=== PATIENT | female | born 1960 | race American Indian/Alaskan Native ===

== ENCOUNTER 2016-12-17 22:27 | Emergency (ER) | payer BC ==
--- NOTE | 2016-12-20 21:18 | ED Elopement Review ---
ED Pt Elopement review - Call Back decision Pt Call Back Decision: No action required
== END 2016-12-17 22:43 | disposition left against medical advice (07) ==
LOC: ED 22:27
DX: R07.9 Chest pain, unspecified (principal); Z53.21 Procedure and treatment not carried out due to patient leaving prior to being seen by health care provider

== ENCOUNTER 2017-05-13 13:42 | Inpatient (IN) | payer BC ==
[2017-05-13 14:19] LABS: Basophils % (Auto) 0.6 % (0.0-1.8); Eosinophils % (Auto) 2.1 % (0.0-4.3); Hematocrit 42.5 % (30.3-42.9); Hemoglobin 13.9 gm/dl (10.1-14.3); Mean Corpuscular HGB Conc 33 % (30-34); Mean Corpuscular Hemoglobin 28 pg (28-32); Mean Corpuscular Volume 85 fl (79-97); Platelet Count 198 K/mm3 (140-440); Red Blood Count 5.01 M/mm3 (3.65-5.03); Red Cell Distribution Width 14.4 % (13.2-15.2); White Blood Count 4.9 K/mm3 (4.5-11.0)
[2017-05-13 14:30] LABS: Anion Gap 15 mmol/L; BUN/Creatinine Ratio 11.42; Blood Urea Nitrogen 8 mg/dL (7-17); Calcium 10.3 mg/dL (8.4-10.2); Carbon Dioxide 30 mmol/L (22-30); Chloride 100.4 mmol/L (98-107); Glucose 105 mg/dL (65-100); Potassium 4.1 mmol/L (3.6-5.0); Sodium 141 mmol/L (137-145)
[2017-05-14] MEDS ORDERED: NITROSTAT SL ONE ×2 (03:37→03:43)
--- NOTE | 2017-05-14 06:12 | Emergency Department Report ---
ED Chest Pain HPI - General Chief Complaint: Chest Pain Stated Complaint: CHEST PAIN/HIGH BP/DIZZINESS Time Seen by Provider: 05/14/17 05:56 Source: patient Mode of arrival: Ambulatory Limitations: No Limitations - History of Present Illness Initial Comments: 56-year-old female who is been experiencing chest pain was a course last several months. She describes pressure in the center chest radiates to her jaw. She is short of breath with this. She had a recent stress test which she states she said showed "scar tissue in the front of her heart". She states the symptoms are similar over the last several months and there has not been any significant worsening of her symptoms since her stress test. Denies fevers chills nausea vomiting. She is worried slightly better blood pressure is been elevated lately. MD Complaint: chest pain -: Gradual Onset: during rest, during exertion Pain Location: substernal Pain Radiation: jaw/teeth Severity: moderate Severity scale (0 -10): 8 Quality: tightness Consistency: intermittent Improves With: rest Worsens With: nothing Treatments Prior to Arrival: none - Related Data Home Medications Medication Instructions Recorded Confirmed Last Taken Hydrochlorothiazide 25 mg PO DAILY 09/04/13 06/10/16 09/04/13 05:00 Previous Rx's Medication Instructions Recorded Last Taken Type HYDROcodone/APAP 10-325 [[place] 1 each PO Q4H PRN #30 tablet 10/04/13 Unknown Rx 10-325 mg TAB] Levofloxacin [Levaquin TAB] 750 mg PO Q24HR #5 tablet 06/12/16 Unknown Rx Allergies Allergy/AdvReac Type Severity Reaction Status Date / Time No Known Allergies Allergy Verified 09/04/13 07:16 Heart Score - HEART Score History: Highly suspicious EKG: Non-specific Age: 45-65 Risk factors: > 3 risk factors or hx of atherosclerotic disease Troponin: < normal limit HEART Score: 6 ED Review of Systems ROS: Stated complaint: CHEST PAIN/HIGH BP/DIZZINESS Other details as noted in HPI Comment: All other systems reviewed and negative Constitutional: denies: chills, fever Eyes: denies: eye pain, eye discharge, vision change ENT: denies: ear pain, throat pain Respiratory: shortness of breath, SOB with exertion. denies: cough, wheezing Cardiovascular: chest pain, dyspnea on exertion. denies: palpitations Endocrine: no symptoms reported Gastrointestinal: denies: abdominal pain, nausea, diarrhea Genitourinary: denies: urgency, dysuria, discharge Musculoskeletal: denies: back pain, joint swelling, arthralgia Skin: denies: rash, lesions Neurological: denies: headache, weakness, paresthesias Psychiatric: denies: anxiety, depression Hematological/Lymphatic: denies: easy bleeding, easy bruising ED Past Medical Hx - Past Medical History Hx Hypertension: Yes Hx Congestive Heart Failure: Yes Hx Seizures: Yes (1x during child ) Hx Psychiatric Treatment: Yes (ANXIETY) - Surgical History Additional Surgical History: Hysterectomy. COLON POLYPS - Family History Family history: CAD/PR - Social History Smoking Status: Current Every Day Smoker Substance Use Type: None - Medications Home Medications: Home Medications Medication Instructions Recorded Confirmed Last Taken Type Hydrochlorothiazide 25 mg PO DAILY 09/04/13 06/10/16 09/04/13 05:00 History HYDROcodone/APAP 10-325 [[place] 1 each PO Q4H PRN #30 tablet 10/04/13 06/10/16 Unknown Rx 10-325 mg TAB] Levofloxacin [Levaquin TAB] 750 mg PO Q24HR #5 tablet 06/12/16 Unknown Rx ED Physical Exam - General Limitations: No Limitations General appearance: alert, in no apparent distress - Head Head exam: Present: atraumatic, normocephalic - Eye Eye exam: Present: normal appearance. Absent: scleral icterus, conjunctival injection - ENT ENT exam: Present: mucous membranes moist - Neck Neck exam: Present: normal inspection - Respiratory Respiratory exam: Present: normal lung sounds bilaterally. Absent: respiratory distress - Cardiovascular Cardiovascular Exam: Present: regular rate, normal rhythm, normal heart sounds. Absent: systolic murmur, diastolic murmur, rubs, gallop - GI/Abdominal GI/Abdominal exam: Present: soft, normal bowel sounds - Extremities Exam Extremities exam: Present: normal inspection - Back Exam Back exam: Present: normal inspection - Neurological Exam Neurological exam: Present: alert, oriented X3 - Psychiatric Psychiatric exam: Present: normal affect, normal mood - Skin Skin exam: Present: warm, dry, intact, normal color. Absent: rash ED Course Vital Signs 05/13/17 05/13/17 05/14/17 13:51 23:49 01:58 Temperature 98.1 F 97.9 F Pulse Rate 83 78 77 Respiratory 20 18 Rate Blood Pressure 163/107 153/103 Blood Pressure [Left] O2 Sat by Pulse 100 Oximetry 05/14/17 05/14/17 05/14/17 02:00 02:16 02:25 Temperature 97.8 F Pulse Rate 63 71 71 Respiratory 21 17 21 Rate Blood Pressure 192/98 192/98 Blood Pressure 192/98 [Left] O2 Sat by Pulse 98 100 98 Oximetry 05/14/17 05/14/17 05/14/17 02:30 02:45 03:00 Temperature Pulse Rate 67 67 68 Respiratory 13 16 16 Rate Blood Pressure 172/102 174/102 179/106 Blood Pressure [Left] O2 Sat by Pulse 98 94 95 Oximetry 05/14/17 05/14/17 05/14/17 03:15 03:31 03:42 Temperature Pulse Rate 71 74 66 Respiratory 14 16 Rate Blood Pressure 174/102 174/102 166/98 Blood Pressure [Left] O2 Sat by Pulse 100 97 Oximetry 05/14/17 05/14/17 05/14/17 03:45 04:00 04:15 Temperature Pulse Rate 78 68 74 Respiratory 16 14 19 Rate Blood Pressure 166/98 148/91 148/91 Blood Pressure [Left] O2 Sat by Pulse 97 96 97 Oximetry BERNA score - Berna Score Age > 65: (0) No Aspirin use within the Past 7 Days: (0) No 3 or more CAD Risk Factors: (0) No 2 or more Angina events in past 24 hrs: (0) No Known CAD with more than 50% Stenosis: (0) No Elevated Cardiac Markers: (0) No ST Deviation Greater than 0.5mm: (0) No BERNA Score: 0 ED Medical Decision Making - Lab Data Result diagrams: 05/13/17 13:57 05/13/17 13:57 Laboratory Results - last 24 hr 05/13/17 05/13/17 05/13/17 13:57 13:57 17:07 WBC 4.9 RBC 5.01 Hgb 13.9 Hct 42.5 MCV 85 MCH 28 MCHC 33 RDW 14.4 Plt Count 198 Lymph % (Auto) 44.4 H Dukes % (Auto) 10.7 H Eos % (Auto) 2.1 Baso % (Auto) 0.6 Lymph # 2.1 Dukes # 0.5 Eos # 0.1 Baso # 0.0 Seg Neutrophils % 42.2 Seg Neutrophils # 2.0 Sodium 141 Potassium 4.1 Chloride 100.4 Carbon Dioxide 30 Anion Gap 15 BUN 8 Creatinine 0.7 Estimated GFR > 60 BUN/Creatinine Ratio 11.42 Glucose 105 H Calcium 10.3 H Troponin T < 0.010 < 0.010 05/13/17 20:45 WBC RBC Hgb Hct MCV MCH MCHC RDW Plt Count Lymph % (Auto) Dukes % (Auto) Eos % (Auto) Baso % (Auto) Lymph # Dukes # Eos # Baso # Seg Neutrophils % Seg Neutrophils # Sodium Potassium Chloride Carbon Dioxide Anion Gap BUN Creatinine Estimated GFR BUN/Creatinine Ratio Glucose Calcium Troponin T < 0.010 - EKG Data -: EKG Interpreted by Me - EKG Data 05/14/17 06:10 Sinus rhythm rate of 79 and normal axis normal intervals questionable LVH no ST or T-wave changes. - Medical Decision Making 56-year-old female here with complaint of chest pain. Her story is certainly concerning for possible ACS. She is being followed by cardiology and has been told she's had a recent stress test with some questionable findings. Given her persistence of symptoms over the course of last 2 months and some questionable worsening I will discuss with cardiology. Currently her EKG does not show obvious ischemia. She had 2 negative troponin tests. Given the patient's accelerating symptoms a plan to admit. My recommendation would be a cardiac catheterization to rule out true disease. Portions of this chart were dictated with dictation software. There may be dictation errors contained within this note. Critical care attestation.: If time is entered above; I have spent that time in minutes in the direct care of this critically ill patient, excluding procedure time. ED Disposition Clinical Impression: Chest pain Disposition: -09 OP ADMIT IP TO THIS HOSP Is pt being admited?: Yes Condition: Stable Instructions: Chest Pain (ED) Referrals: PRIMARY CARE, [Primary Care Provider] - 3-5 Days
--- NOTE | 2017-05-14 07:34 | XRay Report ---
CHEST 2 VIEWS INDICATION: Chest pain. COMPARISON: 06/11/2016. FINDINGS: PA and lateral chest radiographs demonstrate normal cardiomediastinal silhouette. Clear lungs. Mild mid thoracic spine degenerative changes. EKG leads. CONCLUSION: No acute disease in the chest. Thank you for the opportunity to participate in this patient's care.
--- NOTE | 2017-05-14 07:44 | Admit Criteria Form ---
<YVAN BRITTON - Last Filed: 05/14/17 11:50> Admission Criteria Documentation: CARDIOLOGY GRG Clinical Indications for Admission to Inpatient Care ([place]/check or initial the applicable condition/criteria) Hospital admission is needed for appropriate care of the patient because of ANY ONE of the following: [ ] I. Hemodynamic instability as indicated by ALL of the following (1)(2)(3) (4)(5)(6)(7)(8)(9)(10) [ ]a) Vital sign abnormality not readily corrected by appropriate treatment with 12-24 hours for ANY ONE: [ ]i) Hypotension that persists despite appropriate treatment (eg, volume repletion) [ ]ii) Tachycardiathat persists despite appropriate tx ( e.g., analgesia, fluids, sedation as indicated [ ]iii) Orthostatic vital sign changes that persists despite appropriate treatment (eg, volume repletion) [ ]b) Vital sign abnormailty that is severe indicated by ANY ONE of the following: [ ]i) Inadequate perfusion indicated by ANY ONE of the following: [ ] 1) Lactic acidosis (> 2 mmol/L) [ ] 2) New abnormal capillary refill (> 3 seconds) [ ] 3) Reduced urine output [ ] 4) New altered mental status [ ] 5) Myocardial Ischemia [ ] 6) Other metabolic acidosis (arterial pH <7.35 ) not otherwise explained. [ ]ii) Mean arterial pressure[A] less than 60 mm Hg [ ]iii) Mean arterial pressure[A] less than 70 mm Hg after 30 minutes of appropriate treatment (eg, fluid resuscitation) [ ]iv) Sustained heart rate greater than 120 beats per minute in adult or child 6 years or older[B] [ ]v) IV inotropic or vasopressor medication required to maintain adequate blood pressure or perfusion [ ] II. Severe heart failure as indicated by ANY ONE of the following(17)(18) [ ]a) Respiratory distress [ ]b) Hypotension [ ]c) Debilitating anasarca refractory to therapy (eg, tissue breakdown with infection)[C](19) [ ]d) Cardiac arrhythmias of immediate concern [ ]e) Myocardial ischemia [ ] III. Cardiac arrhythmias or findings of immediate concern indicated by ANY ONE of the following (21)(22): [ ] a) Heart rhythms that are inherently dangerous or unstable indicated by ANY ONE of the following (23)(24)(25): [ ] i) Resuscitated ventricular fibrillation or cardiac arrest [ ] ii) Ventricular escape rhythm [ ] iii) Sustained ventricular tachycardia (30 seconds or more of ventricular rhythm at greater than 100 beats per minute) [ ] iv) Nonsustained ventricular tachycardia and ANY ONE of the following: [ ] 1) Suspected cardiac ischemia as cause or consequence of ventricular tachycardia [ ] 2) Acute myocarditis [ ] b) Unstable cardiac conduction defects indicated by ANY ONE of the following(25)(26)(27) [ ] i) Type II second-degree atrioventricular block [ ]ii) Third-degree atrioventricular block [ ]iii) New-onset left bundle branch block with suspected myocardial ischemia [ ]c) Any heart rhythm and ANY ONE of the following (23)(24)(28)(29) (30) [ ] i) Continuous long-term ECG monitoring needed (e.g., initiation of drug requiring monitoring for more than 24 hours) [ ] ii) Patient has automatic implanted cardioverter defibrillator that is repeatedly firing, malfunctioning, or in need of immediate adjustment of settings beyond the scope of ambulatory or observation care [ ]d) Heart rhythms of concern due to ANY ONE of the following: [ ] i) Hypotension [ ] ii) Respiratory distress [ ] iii) Association with other significant symptoms (e.g., bradycardia with syncope or ongoing dizziness, supraventricular tachycardia with chest pain (28)(29)(31) [ ] IV. Monitoring for cardiac contusion beyond the scope of observation care needed [A](32)(33)(34) [ ] V. Surgical or device complication (e.g., valve replacement complication , ICD disfunction or pacemaker dysfunction) (49)(50)(51)(52)(53)(54) [ ] . Inpatient palliative care needed. [F](51)(52) Also use Inpatient Palliative Care Criteria [ ] VII. Nonbacterial thrombotic (marantic) endocarditis(43)(44)(55)(56)(57) [X] VIII. Cardiology condition, symptom, or finding for which emergency and observation care has failed or are not considered appropriate. [ ] IX. Acute valvular disease requiring inpatient as indicated by ANY ONE of the following (40)(41) [ ]a) Acute valvular regurgitation (42) [ ]b) Noninfectious valvulitis (43)(44) [ ]c) Obstructive valve thrombosis (45)(46) [ ]d) Paravalvular leak(47)(48) [ ]e) Other significant valvular disorder remaining after emergency or observation level of care (as appropriate) [ ]X. Pericardial disease requiring inpatient treatment as indicated by ANY ONE of the following (35)(36)(37)(38) [ ]a) Suspected tamponade [ ]b) Hemopericardium [ ]c) Other significant pericardial disorder remaining after emergency or observation level of care (as appropriate)(39) [ ] XI. Cardiac ischemia beyond scope of emergency and observation care. [ ] XII. Cyanotic heart disease requiring inpatient care as indicated by 1 or more of the following(58)(59)(60): [ ]a) Acute onset of hypoxemia [ ]b) Exacerbation [ ] XIII. Hypertension requiring inpatient treatment as indicated by ANYONE of the following(11)(12)(13)(14): [ ]a) Severe hypertension (SBP greater than 180 mm Hg or DBP greater than 110 mm Hg, or greater than the 95th percentile for age, gender, and height in pediatric patients) that cannot be controlled (eg, to SBP less than 160 mm Hg and DBP less than 100 mm Hg) by emergency department or observation care treatment(15) [ ]b) Acute end organ damage secondary to hypertension (SBP greater than 140 mm Hg or DBP greater than 90 mm Hg) as indicated by ANYONE of the following: [ ] i) Hypertensive encephalopathy (eg, Altered mental status)(16) [ ] ii) Cerebral infarction [ ] iii) Intracranial hemorrhage [ ] iv) Myocardial ischemia or infarction [ ] v) Heart failure (eg, pulmonary edema) [ ] vi) Aortic dissection [ ] vii) Increased creatinine (new) with reduction of more than 50% in estimated glomerular filtration rate from baseline [ ] viii) Papilledema [ ] ix) Retinal hemorrhage [ ] x) Microangiopathic hemolytic anemia [ ] xi) Seizure [ ] xii) Other significant finding secondary to hypertension [ ] XIV. Complications of transplanted heart indicated by ANY ONE of the following(61): [ ]a) Acute graft rejection requiring inpatient management (eg, intravenous imunosuppression)(62)(63) [ ]b) Acute graft heart failure indicated by ANY ONE of the following(64): [ ] i) Hemodynamic instability [ ] ii) Cardiac arrhythmias of immediate concern [ ] iii) Pulmonary edema that is very severe (eg, mechanical ventilation needed, imminent or likely, need for 100% oxygen to keep oxygen saturation above 90%) [ ] iv) Pulmonary edema that is persistent as indicated by ALL of the following: [ ] 1) New need for oxygen therapy to keep oxygen saturation above 90 % (or increased FiO2 need from baseline) [ ] 2) Has not improved sufficiently with emergency department or observation care IV diuretics or other heart failure treatments[E]. [ ] iv) Altered mental status that is severe or persistent [ ] iv) Increased creatinine (new on laboratory test) with reduction of more than 50% in estimated glomerular filtration rate from baseline [ ] iv) Progressively (ongoing) rising creatinine (known from past laboratory test) with reduction of more than 25% in estimated glomerular filtration rate from baseline [ ] iv) Acute renal failure [ ] iv) Acute peripheral ischemia (eg, examination shows pulseless, cool, mottled, or cyanotic extremity) [ ] iv) Pulmonary artery catheter monitoring needed [ ] iv) Other sign or symptom of heart failure requiring inpatient treatment (ie, too severe or not responsive to outpatient and observation care treatment) [ ]c) Infection requiring inpatient management (eg, Hemodynamic instability, need for intravenous antimicrobial treatment)(66)(67)(68)(69)(70) [ ]d) Cardiac allograft vasculopathy requiring inpatient management (eg evidence of cardiacischemia)(71) [ ]e) Other complication of transplanted heart (eg, stroke, severe pulmonary hypertension, severe valvular dysfunction) requiring inpatient management(72) The original [facility] [employer] content created by [employer] has been revised. The portions of the content which have been revised are identified through the use of italic text or in bold, and [facility] has neither reviewed nor approved the modified material. All other unmodified content is copyright [facility] [employer]. Please see references footnoted in the original [facility] [employer] edition 2017 Admission Criteria Met: Yes <JESSA WHITMORE - Last Filed: 05/17/17 15:44> Admission Criteria Documentation: I am administratively signing this admission criteria form. This form has no clinical bearing on the patients admission status.
[2017-05-14] MEDS ORDERED: TYLENOL PO PRN (08:26)
[2017-05-14] MEDS ORDERED: DULCOLAX PR PRN (08:26)
[2017-05-14] MEDS ORDERED: NITROSTAT SL PRN (08:33)
--- NOTE | 2017-05-14 09:38 | History and Physical Report ---
<MICHELL ISAACS - Last Filed: 05/14/17 14:06> History of Present Illness Date of examination: 05/14/17 Date of admission: 05/14/17 08:26 Chief complaint: Chest Pain History of present illness: Patient is a 56 years old -[place] female with no past medical history who presents to the emergency department complaining of chest pain. She states that the pain began yesterday and consisted of a sharp pain. The pain was located over the Midsternal somewhat to the left shoulder area . She noticed the pain this morning as he was getting out of bed and while the patient was walking to the bath room. She describes the quality as something is sitting on her chest /pressure without radiation to the shoulder, arm, back, or jaw. It has been a constant pain since it started last night. no alleviating or aggravating factors. He continued to have several episodes of the pain throughout this morning, she got worried so she decided to come to emergency room. Patient took Tylenol and Motrin with out improvement. At the ED the patient was given nitroglycerin and ASA somewhat believes relief the pain. She reported shortness of breath and dyspnea on exertion. She denies nausea, vomiting heart palpitations lightheadedness, dizziness, and diaphoresis during these episodes of pain. The patient currently denies having chest pain. Past History Past Medical History: hypertension, other (depression) Past Surgical History: No surgical history Social history: lives with family, smoking Family history: diabetes, hypertension Medications and Allergies Allergies Allergy/AdvReac Type Severity Reaction Status Date / Time No Known Allergies Allergy Verified 09/04/13 07:16 Home Medications Medication Instructions Recorded Confirmed Last Taken Type Hydrochlorothiazide 25 mg PO DAILY 09/04/13 05/14/17 09/04/13 05:00 History Lisinopril [Zestril] 20 mg PO QDAY 05/14/17 05/14/17 Unknown History Multivitamin Tab [Multiple Vitamin 1 each PO QDAY 05/14/17 05/14/17 Unknown History TAB (Theragran)] PARoxetine [Paxil] 20 mg PO DAILY 05/14/17 05/14/17 Unknown History Active Meds: Active Medications Acetaminophen (Tylenol) 650 mg PO Q4H PRN PRN Reason: Pain MILD(1-3)/Fever >100.5/CEDENO Aspirin (Aspirin) 325 mg PO DAILY [facility] Bisacodyl (Dulcolax) 10 mg ME QDAY PRN PRN Reason: Constipation unrelieved by MOM Enoxaparin Sodium (Lovenox) 40 mg SUB-Q QDAY [facility] Hydrochlorothiazide (Hctz) 25 mg PO DAILY [facility] Morphine Sulfate (Morphine) 2 mg IV Q4H PRN PRN Reason: Pain, Moderate (4-6) Nitroglycerin (Nitrostat) 0.4 mg SL .Q5MIN PRN PRN Reason: Chest Pain Review of Systems Constitutional: no weight loss, no weight gain, no fever, no chills Ears, nose, mouth and throat: no ear pain, no ear discharge, no tinnitis, no decreased hearing, no nose pain Breasts: normal, no swelling, no mass Cardiovascular: chest pain, palpitations, shortness of breath, dyspnea on exertion, no rapid/irregular heart beat, no edema, no syncope, no lightheadedness Respiratory: no cough Gastrointestinal: nausea, no vomiting, no diarrhea, no constipation, no change in bowel habits Genitourinary Female: no pelvic pain, no flank pain, no menorrhagia, no dysuria , no urinary frequency Menstruation: no currently menstrual, no premenarcheal, no post hysterectomy, no ammenorrhea Rectal: no pain, no incontinence Musculoskeletal: no neck stiffness, no neck pain, no arm numbness/tingling Integumentary: no rash, no pruritis, no redness, no sores Neurological: no head injury, no transient paralysis, no paralysis, no weakness , no parathesias Psychiatric: depression, no anxiety, no change in sleep habits Endocrine: no cold intolerance, no heat intolerance, no polyphagia, no excessive thirst, no polydipsia Hematologic/Lymphatic: no easy bruising, no easy bleeding Allergic/Immunologic: no urticaria, no allergic rhinitis Exam - Constitutional Vitals: Temp Pulse Resp BP Pulse Ox 97.8 F 69 18 151/106 97 05/14/17 02:25 05/14/17 07:53 05/14/17 07:53 05/14/17 07:53 05/14/17 07:53 General appearance: Present: no acute distress - EENT Eyes: Present: PERRL ENT: hearing intact - Neck Neck: Present: supple - Respiratory Respiratory effort: normal Respiratory: bilateral: CTA - Cardiovascular Heart rate: 62 Rhythm: regular Heart Sounds: Present: S1 & S2 - Extremities Extremities: no ischemia Peripheral Pulses: within normal limits - Abdominal General gastrointestinal: Present: soft, non-tender Female genitourinary: Present: deferred - Rectal Rectal Exam: deferred - Integumentary Integumentary: Present: clear, warm, dry - Musculoskeletal Musculoskeletal: strength equal bilaterally - Psychiatric Psychiatric: appropriate mood/affect - Neurologic Neurologic: CNII-XII intact - Allied Health Allied health notes reviewed: nursing Results - Labs CBC & Chem 7: 05/13/17 13:57 05/13/17 13:57 Labs: Laboratory Last Values WBC 4.9 K/mm3 (4.5-11.0) 05/13/17 13:57 RBC 5.01 M/mm3 (3.65-5.03) 05/13/17 13:57 Hgb 13.9 gm/dl (10.1-14.3) 05/13/17 13:57 Hct 42.5 % (30.3-42.9) 05/13/17 13:57 MCV 85 fl (79-97) 05/13/17 13:57 MCH 28 pg (28-32) 05/13/17 13:57 MCHC 33 % (30-34) 05/13/17 13:57 RDW 14.4 % (13.2-15.2) 05/13/17 13:57 Plt Count 198 K/mm3 (140-440) 05/13/17 13:57 Lymph % (Auto) 44.4 % (13.4-35.0) H 05/13/17 13:57 Gilliam % (Auto) 10.7 % (0.0-7.3) H 05/13/17 13:57 Eos % (Auto) 2.1 % (0.0-4.3) 05/13/17 13:57 Baso % (Auto) 0.6 % (0.0-1.8) 05/13/17 13:57 Lymph # 2.1 K/mm3 (1.2-5.4) 05/13/17 13:57 [place]illiam # 0.5 K/mm3 (0.0-0.8) 05/13/17 13:57 Eos # 0.1 K/mm3 (0.0-0.4) 05/13/17 13:57 Baso # 0.0 K/mm3 (0.0-0.1) 05/13/17 13:57 Seg Neutrophils % 42.2 % (40.0-70.0) 05/13/17 13:57 Seg Neutrophils # 2.0 K/mm3 (1.8-7.7) 05/13/17 13:57 Sodium 141 mmol/L (137-145) 05/13/17 13:57 Potassium 4.1 mmol/L (3.6-5.0) 05/13/17 13:57 Chloride 100.4 mmol/L (98-107) 05/13/17 13:57 Carbon Dioxide 30 mmol/L (22-30) 05/13/17 13:57 Anion Gap 15 mmol/L 05/13/17 13:57 BUN 8 mg/dL (7-17) 05/13/17 13:57 Creatinine 0.7 mg/dL (0.7-1.2) 05/13/17 13:57 Estimated GFR > 60 ml/min 05/13/17 13:57 BUN/Creatinine Ratio 11.42 % 05/13/17 13:57 Glucose 105 mg/dL (65-100) H 05/13/17 13:57 Calcium 10.3 mg/dL (8.4-10.2) H 05/13/17 13:57 Troponin T < 0.010 ng/mL (0.00-0.029) 05/13/17 20:45 - Imaging and Cardiology Chest x-ray: image reviewed (no acute disease chest) Assessment and Plan Assessment and plan: Chest Pain We will admit to telemetry floor. EKG normal sinus rate [address] elevation or T-wave inversion. Negative cardiac enzyme X3 Start on aspirin Nitroglycerin when necessary Morphine ordered for pain Patient has Long-standing atypical chest pain, with extensive prior cardiac workup including a negative cardiac catheterization 3-1/2 years ago, and a negative outpatient thallium stress test 4 months ago. ECGs and cardiac enzymes are negative. No additional cardiac workup is indicated for atypical chest pain, per cardiology. Cardiology Consulted Hypertension Started on home antihypertensive pills. IV hydralazine for SBP >160 Closely monitor blood pressure Depression Started on home antidepression medication. Tobacco use Smoking cessation counseling done patient strongly advised to quit. <JORGE URENA - Last Filed: 05/14/17 18:33> History of Present Illness Date of admission: 05/14/17 08:26 Medications and Allergies Active Meds: Active Medications Acetaminophen (Tylenol) 650 mg PO Q4H PRN PRN Reason: Pain MILD(1-3)/Fever >100.5/CEDENO Aspirin (Aspirin) 325 mg PO DAILY [facility] Last Admin: 05/14/17 10:25 Dose: 325 mg Bisacodyl (Dulcolax) 10 mg ME QDAY PRN PRN Reason: Constipation unrelieved by MOM Enoxaparin Sodium (Lovenox) 40 mg SUB-Q QDAY [facility] Last Admin: 05/14/17 10:25 Dose: 40 mg Hydrochlorothiazide (Hctz) 25 mg PO DAILY [facility] Last Admin: 05/14/17 10:25 Dose: 25 mg Lisinopril (Zestril) 20 mg PO QDAY [facility] Morphine Sulfate (Morphine) 2 mg IV Q4H PRN PRN Reason: Pain, Moderate (4-6) Last Admin: 05/14/17 15:51 Dose: 2 mg Multivitamins (Theragran Tab) 1 each PO QDAY [facility] Nitroglycerin (Nitrostat) 0.4 mg SL .Q5MIN PRN PRN Reason: Chest Pain Paroxetine HCl (Paxil) 20 mg PO DAILY [facility] Valsartan (Diovan) 80 mg PO BID [facility] Last Admin: 05/14/17 15:51 Dose: 80 mg Exam - Constitutional Vitals: Temp Pulse Resp BP Pulse Ox 98.5 F 67 20 99/78 99 05/14/17 17:00 05/14/17 17:00 05/14/17 17:00 05/14/17 17:00 05/14/17 17:00 Results - Labs CBC & Chem 7: 05/13/17 13:57 05/13/17 13:57 Labs: Laboratory Last Values WBC 4.9 K/mm3 (4.5-11.0) 05/13/17 13:57 RBC 5.01 M/mm3 (3.65-5.03) 05/13/17 13:57 Hgb 13.9 gm/dl (10.1-14.3) 05/13/17 13:57 Hct 42.5 % (30.3-42.9) 05/13/17 13:57 MCV 85 fl (79-97) 05/13/17 13:57 MCH 28 pg (28-32) 05/13/17 13:57 MCHC 33 % (30-34) 05/13/17 13:57 RDW 14.4 % (13.2-15.2) 05/13/17 13:57 Plt Count 198 K/mm3 (140-440) 05/13/17 13:57 Lymph % (Auto) 44.4 % (13.4-35.0) H 05/13/17 13:57 Gilliam % (Auto) 10.7 % (0.0-7.3) H 05/13/17 13:57 Eos % (Auto) 2.1 % (0.0-4.3) 05/13/17 13:57 Baso % (Auto) 0.6 % (0.0-1.8) 05/13/17 13:57 Lymph # 2.1 K/mm3 (1.2-5.4) 05/13/17 13:57 Gilliam # 0.5 K/mm3 (0.0-0.8) 05/13/17 13:57 Eos # 0.1 K/mm3 (0.0-0.4) 05/13/17 13:57 Baso # 0.0 K/mm3 (0.0-0.1) 05/13/17 13:57 Seg Neutrophils % 42.2 % (40.0-70.0) 05/13/17 13:57 Seg Neutrophils # 2.0 K/mm3 (1.8-7.7) 05/13/17 13:57 Sodium 141 mmol/L (137-145) 05/13/17 13:57 Potassium 4.1 mmol/L (3.6-5.0) 05/13/17 13:57 Chloride 100.4 mmol/L (98-107) 05/13/17 13:57 Carbon Dioxide 30 mmol/L (22-30) 05/13/17 13:57 Anion Gap 15 mmol/L 05/13/17 13:57 BUN 8 mg/dL (7-17) 05/13/17 13:57 Creatinine 0.7 mg/dL (0.7-1.2) 05/13/17 13:57 Estimated GFR > 60 ml/min 05/13/17 13:57 BUN/Creatinine Ratio 11.42 % 05/13/17 13:57 Glucose 105 mg/dL (65-100) H 05/13/17 13:57 Calcium 10.3 mg/dL (8.4-10.2) H 05/13/17 13:57 Troponin T < 0.010 ng/mL (0.00-0.029) 05/13/17 20:45 Assessment and Plan Assessment and plan: I saw and evaluated the patient. I agree with the findings and the plan of care as documented in the Nurse Practitioner's~note, with the following corrections and additions. Patient presents with chest pain. Will admit to rule out acute coronary syndrome. Cardiology to evaluate. Advance Directives: Yes (Full code) VTE prophylaxis?: Chemical Plan of care discussed with patient/family: Yes
[2017-05-14] MEDS: HCTZ PO SCH (10:25)
[2017-05-14] MEDS: LOVENOX SUB-Q SCH (10:25)
[2017-05-14] MEDS: ASPIRIN PO SCH (10:25)
[2017-05-14] MEDS ORDERED: MORPHINE ONE (10:55)
[2017-05-14] MEDS: MORPHINE IV PRN ×3 (11:02→22:07)
--- NOTE | 2017-05-14 12:35 | Consultation ---
History of Present Illness Consult date: 05/14/17 Consult reason: chest pain History of present illness: Patient is a 56-year-old woman with a long history of atypical chest pain. Chest pain workup has culminated in a cardiac catheterization 3-1/2 years ago in this hospital, August 2013. Cardiac catheterization was negative, with no significant coronary lesions, normal left ventricle systolic function ejection fraction 55-60%. In addition, she reports that 4 months ago, she underwent outpatient Persantin thallium stress test that was also negative. In addition, she has chronic uncontrolled hypertension. She presented to this hospital at this time with complaints of lightheadedness and dizziness which she suspected was due to blood pressure elevation. She states that she took her blood pressure and it was 170 systolic. This led to additional anxiety, when she also reported some nonspecific, poorly characterized chest pain. She presented to the emergency room where an EKG revealed normal sinus rhythm, poor R-wave progression, but otherwise normal ECG with no ST or T-wave changes of ischemia. She was admitted and cardiac consultation requested. It is notable that since admission, her blood pressure has remained persistently elevated 160s to 170s systolic. Separately, the patient also reports that she was recently diagnosed with suspected colon cancer and she is planned for outpatient colon surgery in the next several weeks. Past History Past Medical History: CAD, hypertension Medications and Allergies Allergies Allergy/AdvReac Type Severity Reaction Status Date / Time No Known Allergies Allergy Verified 09/04/13 07:16 Home Medications Medication Instructions Recorded Confirmed Last Taken Type Hydrochlorothiazide 25 mg PO DAILY 09/04/13 05/14/17 09/04/13 05:00 History Lisinopril [Zestril] 20 mg PO QDAY 05/14/17 05/14/17 Unknown History Multivitamin Tab [Multiple Vitamin 1 each PO QDAY 05/14/17 05/14/17 Unknown History TAB (Theragran)] PARoxetine [Paxil] 20 mg PO DAILY 05/14/17 05/14/17 Unknown History Active Meds: Active Medications Acetaminophen (Tylenol) 650 mg PO Q4H PRN PRN Reason: Pain MILD(1-3)/Fever >100.5/CEDEON Aspirin (Aspirin) 325 mg PO DAILY [facility] Last Admin: 05/14/17 10:25 Dose: 325 mg Bisacodyl (Dulcolax) 10 mg OR QDAY PRN PRN Reason: Constipation unrelieved by MOM Enoxaparin Sodium (Lovenox) 40 mg SUB-Q QDAY [facility] Last Admin: 05/14/17 10:25 Dose: 40 mg Hydrochlorothiazide (Hctz) 25 mg PO DAILY [facility] Last Admin: 05/14/17 10:25 Dose: 25 mg Morphine Sulfate (Morphine) 2 mg IV Q4H PRN PRN Reason: Pain, Moderate (4-6) Last Admin: 05/14/17 11:02 Dose: 2 mg Nitroglycerin (Nitrostat) 0.4 mg SL .Q5MIN PRN PRN Reason: Chest Pain Review of Systems Cardiovascular: chest pain, other (dizziness), no orthopnea, no palpitations, no rapid/irregular heart beat, no edema, no syncope, no lightheadedness, no shortness of breath Physical Examination Vital Signs Temp Pulse Resp BP Pulse Ox 98.1 F 83 20 163/107 100 05/13/17 13:51 05/13/17 13:51 05/13/17 13:51 05/13/17 13:51 05/13/17 13:51 General appearance: no acute distress HEENT: Positive: PERRL Neck: Positive: neck supple Cardiac: Positive: Reg Rate and Rhythm Lungs: Positive: clear to auscultation Neuro: Positive: Grossly Intact Abdomen: Positive: Soft Female genitourinary: deferred Skin: Positive: Clear Extremities: Absent: edema Results 05/13/17 13:57 05/13/17 13:57 EKG interpretations - Telemetry EKG Rhythm: Sinus Rhythm Assessment and Plan - Patient Problems (1) Uncontrolled hypertension Current Visit: Yes Status: Acute Plan to address problem: Patient's primary medical problem at this time appears to be the uncontrolled hypertension. We will switch her blood pressure medicine to Diovan 160 mg daily. (2) Atypical chest pain Current Visit: Yes Status: Acute Plan to address problem: Long-standing atypical chest pain, with extensive prior cardiac workup including a negative cardiac catheterization 3-1/2 years ago, and a negative outpatient thallium stress test 4 months ago. ECGs and cardiac enzymes are negative. No additional cardiac workup is indicated for atypical chest pain.
[2017-05-14] MEDS: DIOVAN PO SCH ×2 (15:51→22:07)
[2017-05-15] MEDS: MORPHINE IV PRN (03:33)
[2017-05-15 05:46] LABS: Basophils % (Auto) 0.7 % (0.0-1.8); Hematocrit 40.4 % (30.3-42.9); Hemoglobin 13.1 gm/dl (10.1-14.3); Mean Corpuscular HGB Conc 33 % (30-34); Mean Corpuscular Hemoglobin 28 pg (28-32); Mean Corpuscular Volume 86 fl (79-97); Platelet Count 167 K/mm3 (140-440); Red Cell Distribution Width 14.4 % (13.2-15.2); White Blood Count 3.8 K/mm3 (4.5-11.0)
[2017-05-15 06:02] LABS: Alanine Aminotransferase 22 units/L (7-56); Albumin 3.4 g/dL (3.9-5); Albumin/Globulin Ratio 0.9 %; Alkaline Phosphatase 59 units/L (35-129); Anion Gap 15 mmol/L; BUN/Creatinine Ratio 21.66; Blood Urea Nitrogen 13 mg/dL (7-17); Calcium 9.4 mg/dL (8.4-10.2); Carbon Dioxide 27 mmol/L (22-30); Chloride 100.6 mmol/L (98-107); Glucose 95 mg/dL (65-100); Potassium 3.5 mmol/L (3.6-5.0); Sodium 139 mmol/L (137-145); Total Protein 7.3 g/dL (6.3-8.2)
[2017-05-15] MEDS ORDERED: THERAGRAN Tab PO SCH (10:00)
[2017-05-15] MEDS ORDERED: ZESTRIL PO SCH (10:00)
[2017-05-15] MEDS ORDERED: PAXIL PO SCH (10:00)
[2017-05-15] MEDS: ASPIRIN PO SCH (10:04)
[2017-05-15] MEDS: HCTZ PO SCH (10:04)
[2017-05-15] MEDS: DIOVAN PO SCH (10:05)
[2017-05-15] MEDS: LOVENOX SUB-Q SCH (10:14)
--- NOTE | 2017-05-15 10:49 | Discharge Summary ---
Providers - Providers Date of Admission: 05/14/17 08:26 Date of discharge: 05/15/17 Attending physician: JORGE URENA 05/14/17 08:31 Consult to Physician [CONS] Routine Consulting Provider: RAEGAN YANEZ Reason For Exam: Chest pain Place consult to:: yes Notified:: yes Primary care physician: DEMETRIUS PARRY MD Hospitalization Condition: Fair Hospital course: Patient is 56 yo presented with chest pain. Initial Troponin was normal. Her BP was elevated at 163/107. She was given medications to control blood pressure She was given Aspirin and admitted to rule out acute coronary syndrome and manage hypertensive urgency. She was evaluated by Cardiology who then noted that patient had negative cardiac cath few yrs ago and negative stress test 4 months ago.No further cardiac testing was recommended. She was started on Diovan. Her blood pressure normalised by next day and she was discharged home on 05/15/17 Disposition: DC-01 TO HOME OR SELFCARE - Discharge Diagnoses (1) Chest pain Status: Acute Qualifiers: Chest pain type: C Ischemic chest pain type: I Comment: due to GERD (2) Uncontrolled hypertension Status: Acute (3) Obese Status: Acute Qualifiers: Obesity type: O Obesity classification: O Serious obesity comorbidity presence: S Body mass index: BMI 34.0-34.9 (4) Hypercalcemia Status: Acute Core Measure Documentation - Palliative Care Palliative Care/ Comfort Measures: Not Applicable - Core Measures Any of the following diagnoses?: none Exam - Constitutional Vitals: Temp Pulse Resp BP Pulse Ox 98.0 F 67 18 117/73 96 05/15/17 08:44 05/15/17 10:05 05/15/17 08:44 05/15/17 10:05 05/15/17 08:44 General appearance: Present: no acute distress - EENT ENT: hearing intact - Respiratory Respiratory: bilateral: CTA - Cardiovascular Rhythm: regular Heart Sounds: Present: S1 & S2 (S1 and S2 reg, no murmurs, rubs or gallop) - Extremities Extremities: No edema - Abdominal General gastrointestinal: Present: soft, non-distended, normal bowel sounds - Neurologic Neurologic: moves all extremities, other (AAO x 3) Plan Activity: advance as tolerated Diet: low fat, low cholesterol, low salt Additional Instructions: 1.Follow up with PCP in 1 week. 2.Follow up with [facility] in 1 week Follow up with: PRIMARY CARE, [Primary Care Provider] - 3-5 Days Forms: Work/School Release Form Prescriptions: Valsartan [Diovan] 160 mg PO QDAY #30 tablet
[2017-05-15 13:10] VITALS: BP 129/83
--- NOTE | 2017-05-15 13:54 | Progress Note ---
Assessment and Plan Uncontrolled hypertension now better with the addition of diovan Atypical chest pain negative cardiac catheterization 3-1/2 years ago negative outpatient thallium stress test 4 months ago. ECGs and cardiac enzymes are negative. No additional cardiac workup is indicated for atypical chest pain. Subjective Date of service: 05/15/17 Interval history: Patient appears comfortable. She denies chest pain and shortness of breath. For planned discharge home today. Objective Vital Signs Temp Pulse Resp BP Pulse Ox 05/15/17 13:03 97.4 F L 63 18 129/83 97 05/15/17 10:05 67 117/73 05/15/17 10:04 67 117/73 05/15/17 08:44 98.0 F 67 18 117/73 96 05/15/17 03:55 97.6 F 57 L 20 118/77 94 05/15/17 00:11 98.6 F 64 20 114/80 95 05/14/17 22:00 69 20 05/14/17 19:06 97.9 F 70 19 122/93 98 05/14/17 17:00 98.5 F 67 20 99/78 99 05/14/17 16:00 98.7 F 67 20 99/78 98 05/14/17 15:51 134/86 05/14/17 14:16 62 - Physical Examination General: No Apparent Distress HEENT: Positive: PERRL Neck: Positive: trachea midline Cardiac: Positive: Reg Rate and Rhythm Neuro: Positive: Grossly Intact - Labs and Meds Cardiac Enzymes 05/15/17 Range/Units 05:13 AST 23 (5-40) units/L CBC 05/15/17 Range/Units 05:13 WBC 3.8 L (4.5-11.0) K/mm3 RBC 4.70 (3.65-5.03) M/mm3 Hgb 13.1 (10.1-14.3) gm/dl Hct 40.4 (30.3-42.9) % Plt Count 167 (140-440) K/mm3 Lymph # 1.9 (1.2-5.4) K/mm3 [place] # 0.3 (0.0-0.8) K/mm3 Eos # 0.2 (0.0-0.4) K/mm3 Baso # 0.0 (0.0-0.1) K/mm3 Comprehensive Metabolic Panel 05/15/17 Range/Units 05:13 Sodium 139 (137-145) mmol/L Potassium 3.5 L (3.6-5.0) mmol/L Chloride 100.6 (98-107) mmol/L Carbon Dioxide 27 (22-30) mmol/L BUN 13 (7-17) mg/dL Creatinine 0.6 L (0.7-1.2) mg/dL Glucose 95 (65-100) mg/dL Calcium 9.4 (8.4-10.2) mg/dL AST 23 (5-40) units/L ALT 22 (7-56) units/L Alkaline Phosphatase 59 (35-129) units/L Total Protein 7.3 (6.3-8.2) g/dL Albumin 3.4 L (3.9-5) g/dL
== END 2017-05-15 17:00 | disposition home or self-care (01) | DRG 392 ==
LOC: ED 13:42 → 4A 05-14 08:26
PROVIDERS: ADMIT Internal Medicine; ATTEND Internal Medicine
DX: K21.9 Gastro-esophageal reflux disease without esophagitis (principal); I50.9 Heart failure, unspecified; F41.9 Anxiety disorder, unspecified; F17.200 Nicotine dependence, unspecified, uncomplicated; F32.9 Major depressive disorder, single episode, unspecified; E83.52 Hypercalcemia; E66.9 Obesity, unspecified; I25.10 Atherosclerotic heart disease of native coronary artery without angina pectoris; I11.0 Hypertensive heart disease with heart failure; Z83.3 Family history of diabetes mellitus; Z90.710 Acquired absence of both cervix and uterus; Z82.49 Family history of ischemic heart disease and other diseases of the circulatory system; Z68.34 Body mass index [BMI] 34.0-34.9, adult; I16.0 Hypertensive urgency
CPT/HCPCS: 36415; 71020; 80048; 80053; 84484; 85025; 93005; 93010; 99406; J1650; J2270

== ENCOUNTER 2018-02-05 16:16 | Inpatient (IN) | payer SELFPAY ==
[2018-02-05] MEDS ORDERED: ATIVAN IV ONE (18:11)
--- NOTE | 2018-02-05 18:16 | Emergency Department Report ---
ED General Adult HPI - General Chief complaint: Alcohol Stated complaint: ABD PAIN Time Seen by Provider: 02/05/18 18:11 Source: patient, EMS Mode of arrival: Ambulatory Limitations: No Limitations - History of Present Illness Initial comments: Patient is 57 years old female with history of chronic alcoholism. Patient presented to the ER complaining of generalized abdominal pain and an anxiety in visual hallucination. She stated that she drink alcohol today and yesterday. She denied any chest pain, shortness of breath or cough. No headache, numbness weakness tingling sensation. - Related Data Home Medications Medication Instructions Recorded Confirmed Last Taken Hydrochlorothiazide 25 mg PO DAILY 09/04/13 05/14/17 09/04/13 05:00 Multivitamin Tab [Multiple Vitamin 1 each PO QDAY 05/14/17 05/14/17 Unknown TAB (Theragran)] PARoxetine [Paxil] 20 mg PO DAILY 05/14/17 05/14/17 Unknown Previous Rx's Medication Instructions Recorded Last Taken Type Valsartan [Diovan] 160 mg PO QDAY #30 tablet 05/15/17 Unknown Rx Allergies Allergy/AdvReac Type Severity Reaction Status Date / Time No Known Allergies Allergy Verified 09/04/13 07:16 ED Review of Systems ROS: Stated complaint: ABD PAIN Other details as noted in HPI Comment: All other systems reviewed and negative Constitutional: denies: chills, fever Respiratory: denies: cough, orthopnea, shortness of breath, SOB with exertion, SOB at rest, stridor, wheezing Cardiovascular: denies: chest pain, palpitations, dyspnea on exertion Gastrointestinal: abdominal pain. denies: nausea, vomiting, diarrhea, constipation, hematemesis, melena, hematochezia Genitourinary: denies: urgency, dysuria, frequency, hematuria, discharge, abnormal menses, dyspareunia Neurological: denies: headache, weakness, numbness, paresthesias, confusion, abnormal gait Psychiatric: anxiety, visual hallucinations ED Past Medical Hx - Past Medical History Previous Medical History?: Yes Hx Hypertension: Yes Hx Congestive Heart Failure: Yes Hx of Cancer: Yes (COLON) Hx Seizures: Yes (1x during child ) Hx Psychiatric Treatment: Yes (ANXIETY, ETOH ABUSE) - Surgical History Past Surgical History?: Yes Additional Surgical History: Hysterectomy. COLON POLYPS, TUBALIGATION - Social History Smoking Status: Current Every Day Smoker Substance Use Type: Alcohol, Prescribed - Medications Home Medications: Home Medications Medication Instructions Recorded Confirmed Last Taken Type Hydrochlorothiazide 25 mg PO DAILY 09/04/13 05/14/17 09/04/13 05:00 History Multivitamin Tab [Multiple Vitamin 1 each PO QDAY 05/14/17 05/14/17 Unknown History TAB (Theragran)] PARoxetine [Paxil] 20 mg PO DAILY 05/14/17 05/14/17 Unknown History Valsartan [Diovan] 160 mg PO QDAY #30 tablet 05/15/17 Unknown Rx ED Physical Exam - General Limitations: No Limitations General appearance: alert, anxious - Head Head exam: Present: atraumatic, normocephalic, normal inspection - Eye Eye exam: Present: normal appearance - ENT ENT exam: Present: normal exam, normal orophraynx, mucous membranes moist - Neck Neck exam: Present: normal inspection, full ROM. Absent: tenderness, meningismus, lymphadenopathy, thyromegaly - Respiratory Respiratory exam: Present: normal lung sounds bilaterally. Absent: respiratory distress, wheezes, rales, rhonchi, stridor, chest wall tenderness, accessory muscle use, decreased breath sounds, prolonged expiratory - Cardiovascular Cardiovascular Exam: Present: regular rate, normal rhythm, normal heart sounds - GI/Abdominal GI/Abdominal exam: Present: soft, normal bowel sounds. Absent: distended, tenderness, guarding, rebound, rigid, organomegaly, mass, bruit, pulsatile mass , hernia - Extremities Exam Extremities exam: Present: normal inspection, full ROM, normal capillary refill - Back Exam Back exam: Present: normal inspection, full ROM. Absent: tenderness, CVA tenderness (R), CVA tenderness (L), muscle spasm, paraspinal tenderness, vertebral tenderness, rash noted - Neurological Exam Neurological exam: Present: alert, oriented X3, CN II-XII intact, normal gait, reflexes normal - Skin Skin exam: Present: warm, intact, normal color ED Course Vital Signs 02/05/18 02/05/18 02/05/18 17:46 18:00 18:16 Temperature 97.7 F Pulse Rate 100 H 87 Respiratory 22 Rate Blood Pressure 188/127 195/110 Blood Pressure [Left] O2 Sat by Pulse 99 99 Oximetry 02/05/18 02/05/18 02/05/18 18:30 18:46 19:15 Temperature 98.2 F Pulse Rate 96 H Respiratory 17 Rate Blood Pressure 174/103 174/103 Blood Pressure 141/92 [Left] O2 Sat by Pulse 92 84 100 Oximetry 02/05/18 02/05/18 02/05/18 20:00 21:00 21:30 Temperature Pulse Rate 100 H 99 H 95 H Respiratory 26 H 22 25 H Rate Blood Pressure 153/100 152/101 147/94 Blood Pressure [Left] O2 Sat by Pulse 88 98 92 Oximetry ED Medical Decision Making - Lab Data Result diagrams: 02/05/18 18:05 02/05/18 18:05 - Radiology Data Radiology results: report reviewed Referring Physician: DL ATKINSON Patient Name: FROILAN FREIRE Date of : 1960 Sex: Female Report Date: 2018-02-05 Report Status: Finalized Findings [facility] [address] [place] [address] Cat Scan Report Signed Patient: FROILAN FREIRE MR#: [id number] : 1960 Acct:[id number] Age/Sex: 57 / F ADM Date: 02/05/18 Loc: ED Attending Dr: Ordering Physician: DL ATKINSON Date of Service: 02/05/18 Procedure(s): CT abdomen pelvis w con Accession Number(s): [id number] cc: DL ATKINSON FINAL REPORT EXAM: CT ABDOMEN PELVIS W CON HISTORY: abdominal pain/? colon cancer TECHNIQUE: Axial images are performed from the lung bases to the pubic symphysis. Multiplanar reformats are performed on the acquisition scanner. Total exam DLP 2936.79 mGy-cm Comparison: None FINDINGS: Mild basal atelectasis. Lung bases are motion degraded. Heart size is upper limits normal. Distal esophagus is patulous. Liver is diffusely hypodense compatible with fatty infiltration. It is also enlarged. Normal enhancement and appearance of the spleen, pancreas, bilateral adrenal glands and bilateral kidneys. Gallbladder is moderately distended. Mesenteric vessels enhance normally. There is a right colon suture margin. There is mild diffuse fecal retention with fecalization of the distal small bowel but no definite evidence for bowel obstruction. There is no free air. Urinary bladder is moderately distended. There is free pelvic fluid. Surgically absent uterus. Lumbosacral degenerative disc disease. Nonobstructive right lower pole 2 millimeter stone may be present. Sigmoid is decompressed. The delayed phase images demonstrate fluid in the retroperitoneum around the 3rd portion of the duodenum. No definite free intra or retroperitoneal air. There are subtle hypodense lesions in the liver on the delayed phase images measuring 8 millimeters image 14, 6 millimeters image 19 right lobe, 5 millimeters image 18 right lobe and 6 millimeters imaged 6 hepatic dome. IMPRESSION: Study is limited by motion. Previous right colon resection with anastomosis well delineated in the right central abdomen, nonobstructed and without associated mass. Fecalization of the distal small bowel without obstruction. Free fluid in the bony pelvis with minimal stranding around the right colon. Mild fluid around the 3rd portion the duodenum in the retroperitoneum. No free air is identified. 4 subtle hepatic subcentimeter lesions on delayed phase images. If there is a history of colon cancer, subtle metastases cannot be excluded. Abscesses are also a consideration. Portal vein is patent. Etiology for the free pelvic fluid is not definitely identified. Very dilute oral contrast exam prep with repeat imaging 48-36 hours may be helpful if there is still clinical uncertainty. Transcribed By: MP Dictated By: GIOVANA CALLOWAY Electronically Authenticated By: GIOVANA CALLOWAY Signed Date/Time: 02/05/182114 DD/ 14 TD/TT: 02/05/182114 - Medical Decision Making I discussed the patient with Dr. Rosario Freire, she agreed to admit the patient to her service. Critical care attestation.: If time is entered above; I have spent that time in minutes in the direct care of this critically ill patient, excluding procedure time. ED Disposition Clinical Impression: Abdominal pain, Pancreatitis, DTs (delirium tremens) Disposition: OP ADMIT IP TO THIS HOSP Is pt being admited?: Yes Condition: Stable Referrals: PRIMARY CARE, [Primary Care Provider] - 3-5 Days
[2018-02-05 18:52] LABS: Basophils % (Auto) 0.6 % (0.0-1.8); Eosinophils % (Auto) 0.8 % (0.0-4.3); Hematocrit 42.2 % (30.3-42.9); Hemoglobin 13.6 gm/dl (10.1-14.3); Lymphocytes # (Auto) 2.2 K/mm3 (1.2-5.4); Lymphocytes % (Auto) 39.9 % (13.4-35.0); Mean Corpuscular HGB Conc 32 % (30-34); Mean Corpuscular Hemoglobin 29 pg (28-32); Mean Corpuscular Volume 89 fl (79-97); Monocytes # (Auto) 0.3 K/mm3 (0.0-0.8); Monocytes % (Auto) 6.2 % (0.0-7.3); Platelet Count 189 K/mm3 (140-440); Red Blood Count 4.76 M/mm3 (3.65-5.03)
[2018-02-05 19:11] LABS: BUN/Creatinine Ratio 8; Blood Urea Nitrogen 5 mg/dL (7-17); Calcium 9.9 mg/dL (8.4-10.2); Hemolysis Index 26
[2018-02-05 19:28] LABS: Alanine Aminotransferase 59 units/L (7-56); Albumin 4.1 g/dL (3.9-5); Bilirubin,Direct < 0.2 mg/dL (0-0.2); Lipase 218 units/L (13-60)
[2018-02-05] MEDS ORDERED: NACL 0.9% 1000 ML 1,000 ML IV ONE (20:03)
[2018-02-05] MEDS ORDERED: ZOFRAN IV ONE (21:11)
[2018-02-05] MEDS ORDERED: SUBLIMAZE IV ONE (21:11)
[2018-02-05] MEDS ORDERED: SUBLIMAZE ONE (21:14)
--- NOTE | 2018-02-05 21:19 | Cat Scan Report ---
FINAL REPORT EXAM: CT ABDOMEN PELVIS W CON HISTORY: abdominal pain/? colon cancer TECHNIQUE: Axial images are performed from the lung bases to the pubic symphysis. Multiplanar reformats are performed on the acquisition scanner. Total exam DLP 2936.79 mGy-cm Comparison: None FINDINGS: Mild basal atelectasis. Lung bases are motion degraded. Heart size is upper limits normal. Distal esophagus is patulous. Liver is diffusely hypodense compatible with fatty infiltration. It is also enlarged. Normal enhancement and appearance of the spleen, pancreas, bilateral adrenal glands and bilateral kidneys. Gallbladder is moderately distended. Mesenteric vessels enhance normally. There is a right colon suture margin. There is mild diffuse fecal retention with fecalization of the distal small bowel but no definite evidence for bowel obstruction. There is no free air. Urinary bladder is moderately distended. There is free pelvic fluid. Surgically absent uterus. Lumbosacral degenerative disc disease. Nonobstructive right lower pole 2 millimeter stone may be present. Sigmoid is decompressed. The delayed phase images demonstrate fluid in the retroperitoneum around the 3rd portion of the duodenum. No definite free intra or retroperitoneal air. There are subtle hypodense lesions in the liver on the delayed phase images measuring 8 millimeters image 14, 6 millimeters image 19 right lobe, 5 millimeters image 18 right lobe and 6 millimeters imaged 6 hepatic dome. IMPRESSION: Study is limited by motion. Previous right colon resection with anastomosis well delineated in the right central abdomen, nonobstructed and without associated mass. Fecalization of the distal small bowel without obstruction. Free fluid in the bony pelvis with minimal stranding around the right colon. Mild fluid around the 3rd portion the duodenum in the retroperitoneum. No free air is identified. 4 subtle hepatic subcentimeter lesions on delayed phase images. If there is a history of colon cancer, subtle metastases cannot be excluded. Abscesses are also a consideration. Portal vein is patent. Etiology for the free pelvic fluid is not definitely identified. Very dilute oral contrast exam prep with repeat imaging 48-36 hours may be helpful if there is still clinical uncertainty.
[2018-02-05] MEDS ORDERED: ATIVAN PO PRN (21:52)
[2018-02-05 23:19] LABS: Bilirubin,Urine NEG (Negative); Blood,Urine NEG (Negative); Color,Urine Straw (Yellow); Protein,Urine <15 mg/dL mg/dL (Negative); Urobilinogen,Urine < 2.0 mg/dL (<2.0)
[2018-02-05 23:22] LABS: WBC,Urine < 1.0 /HPF (0.0-6.0)
[2018-02-05 23:29] LABS: Amphetamine Screen,Urine PRESUMPTIVE NEGATIVE; Benzodiazepines Screen,Urine PRESUMPTIVE NEGATIVE; Cannabinoid Screen,Urine PRESUMPTIVE NEGATIVE; Cocaine Screen,Urine PRESUMPTIVE NEGATIVE; Methadone Screen,Urine PRESUMPTIVE NEGATIVE; Opiate Screen,Urine PRESUMPTIVE NEGATIVE
[2018-02-05] MEDS ORDERED: SODIUM CHLORIDE FLUSH SYRINGE 10 ML IV PRN (23:32)
[2018-02-05] MEDS ORDERED: ATIVAN IV PRN (23:32)
[2018-02-05] MEDS ORDERED: TYLENOL PO PRN (23:32)
[2018-02-05] MEDS ORDERED: ZOFRAN IV PRN (23:32)
[2018-02-05] MEDS ORDERED: PROVENTIL IH PRN (23:32)
--- NOTE | 2018-02-05 23:36 | History and Physical Report ---
History of Present Illness Date of examination: 02/05/18 History of present illness: 57 -year-old lady with a history of hypertension, removal of colonic polyps that were cancerous comes emergency room with complaints of abdominal pain which she stated is a little over, described as a tightness, radiating to the back, intensity 7/10, constant, CAD identify exacerbating factor, relieved with IV pain medication. Complains of nausea and vomiting. History of alcohol abuse , last drink was this morning. Emergency room physician reported that the patient had visual hallucinations Review of systems Constitutional: no weight loss, chills Ears, eyes, nose, mouth and throat: no nasal congestion, no nasal discharge, no sinus pressure, no vision change, no red eye. Neck: No neck pain or rigidity. Cardiovascular: no chest pain, palpitations Respiratory: No cough, shortness of breath Gastrointestinal: no abdominal pain, hematochezia Genitourinary : no dysuria, frequency , no hematuria Musculoskeletal: no joint swelling or muscle ache Integumentary: no rash, no pruritis Neurological: no parathesias, no numbness, no focal weakness Endocrine: no cold or heat intolerance, no polyuria or polydipsia Hematologic/Lymphatic: no easy bruising, no easy bleeding, no gland swelling Allergic/Immunologic: no urticaria, no angioedema. PAST MEDICAL HISTORY:hypertension, removal of colonic polyps that were cancerous PAST SURGICAL HISTORY: none SOCIAL HISTORY: Smokes 15 cigarettes a day, drinks half to 1 pint of liquor, no drugs FAMILY HISTORY: Hypertension Medications and Allergies Allergies Allergy/AdvReac Type Severity Reaction Status Date / Time No Known Allergies Allergy Verified 09/04/13 07:16 Home Medications Medication Instructions Recorded Confirmed Last Taken Type Hydrochlorothiazide 25 mg PO DAILY 09/04/13 02/05/18 09/04/13 05:00 History PARoxetine [Paxil] 20 mg PO DAILY 05/14/17 02/05/18 Unknown History Valsartan [Diovan] 160 mg PO QDAY #30 tablet 05/15/17 02/05/18 Unknown Rx Active Meds: Active Medications Sodium Chloride (Nacl 0.9% 1000 Ml) 1,000 mls @ 250 mls/hr IV ONCE ONE Stop: 02/06/18 00:02 Last Admin: 02/05/18 20:52 Dose: 250 mls/hr Lorazepam (Ativan) 2 mg PO Q1HR PRN PRN Reason: CIWA-Ar 8-15 Exam - Physical Exam Narrative exam: Gen. appearance: Patient lying in bed, no apparent distress HEENT: Normocephalic, atraumatic, pupils equally round and reactive to light, extraocular movement intact, and no sclericterus,. No JVD or thyromegaly or nodule,neck supple, no carotid bruit ,mucous membranes moist, no exudate or erythema Heart: S1, S2, regular rate and rhythm Lungs: Clear to auscultation bilaterally, breathing comfortable Abdomen: Positive bowel sounds, nontender, nondistended, no organomegaly Extremity: No edema, cyanosis, clubbing Skin: No rash, nodules, warm, dry Neuro: Oriented 3, cranial nerves II-12 intact, speech is fluent, motor and sensory intact - Constitutional Vitals: Temp Pulse Resp BP Pulse Ox 98.2 F 96 H 22 164/99 95 02/05/18 19:15 02/05/18 23:00 02/05/18 23:00 02/05/18 23:00 02/05/18 23:00 Results - Labs CBC & Chem 7: 02/05/18 18:05 02/05/18 18:05 Labs: Abnormal lab results 02/05/18 02/05/18 02/05/18 Range/Units 18:00 18:05 18:05 RDW (13.2-15.2) % Lymph % (Auto) (13.4-35.0) % Chloride (98-107) mmol/L BUN (7-17) mg/dL Creatinine (0.7-1.2) mg/dL Glucose (65-100) mg/dL AST 98 H (5-40) units/L ALT 59 H (7-56) units/L Lipase 218 H (13-60) units/L Urine pH (5.0-7.0) Salicylates < 0.3 L (2.8-20.0) mg/dL Acetaminophen < 5.0 L (10.0-30.0) ug/mL Plasma/Serum Alcohol (0-0.07) % 02/05/18 02/05/18 02/05/18 Range/Units 18:05 18:05 18:05 RDW 16.0 H (13.2-15.2) % Lymph % (Auto) 39.9 H (13.4-35.0) % Chloride 97.5 L (98-107) mmol/L BUN 5 L (7-17) mg/dL Creatinine 0.6 L (0.7-1.2) mg/dL Glucose 151 H (65-100) mg/dL AST (5-40) units/L ALT (7-56) units/L Lipase (13-60) units/L Urine pH (5.0-7.0) Salicylates (2.8-20.0) mg/dL Acetaminophen (10.0-30.0) ug/mL Plasma/Serum Alcohol 0.20 H (0-0.07) % // Range/Units 19:57 RDW (13.2-15.2) % Lymph % (Auto) (13.4-35.0) % Chloride (98-107) mmol/L BUN (7-17) mg/dL Creatinine (0.7-1.2) mg/dL Glucose (65-100) mg/dL AST (5-40) units/L ALT (7-56) units/L Lipase (13-60) units/L Urine pH 8.0 H (5.0-7.0) Salicylates (2.8-20.0) mg/dL Acetaminophen (10.0-30.0) ug/mL Plasma/Serum Alcohol (0-0.07) % - Imaging and Cardiology CT scan - abdomen: report reviewed CT scan - pelvis: report reviewed Assessment and Plan Assessment Alcohol and pancreatitis Alcohol withdrawal Liver lesions suspicious for metastasis Hypertension History of malignant polyps Plan Admit to medicine Start IV fluid, Draper protocol with IV Ativan Consult GI, DVT prophylaxis
[2018-02-06] MEDS: MORPHINE IV PRN ×5 (00:26→22:18)
[2018-02-06] MEDS: NACL 0.45% 1000 ML 1,000 ML IV SCH ×2 (00:27→18:47)
[2018-02-06] MEDS: ATIVAN IV PRN (02:45)
[2018-02-06 06:31] LABS: Basophils % (Auto) 0.1 % (0.0-1.8); Eosinophils % (Auto) 0.4 % (0.0-4.3); Hematocrit 40.3 % (30.3-42.9); Hemoglobin 13.1 gm/dl (10.1-14.3); Lymphocytes # (Auto) 1.4 K/mm3 (1.2-5.4); Lymphocytes % (Auto) 27.8 % (13.4-35.0); Mean Corpuscular HGB Conc 32 % (30-34); Mean Corpuscular Hemoglobin 29 pg (28-32); Mean Corpuscular Volume 88 fl (79-97); Monocytes # (Auto) 0.5 K/mm3 (0.0-0.8); Monocytes % (Auto) 9.1 % (0.0-7.3); Platelet Count 162 K/mm3 (140-440); Red Blood Count 4.58 M/mm3 (3.65-5.03); Red Cell Distribution Width 16.1 % (13.2-15.2)
[2018-02-06 06:44] LABS: BUN/Creatinine Ratio 10; Blood Urea Nitrogen 6 mg/dL (7-17); Calcium 8.9 mg/dL (8.4-10.2); Hemolysis Index 23
[2018-02-06] MEDS: PAXIL PO SCH (10:42)
[2018-02-06] MEDS: DIOVAN PO SCH (10:42)
[2018-02-06] MEDS: SODIUM CHLORIDE FLUSH SYRINGE 10 ML IV SCH ×2 (10:43→22:16)
[2018-02-06] MEDS: PEPCID IV SCH ×2 (10:44→22:15)
--- NOTE | 2018-02-06 10:45 | Progress Note ---
Assessment and Plan Alcohol and pancreatitis Alcohol withdrawal Liver lesions suspicious for metastasis Hypertension History of malignant polyps Plan Start IV fluid, CIWA protocol with IV Ativan Nothing by mouth IV Pepcid, IV Levaquin Optimize blood pressure control Consult GI, DVT prophylaxis Subjective Date of service: 02/06/18 Principal diagnosis: alcoholic pancreatitis, hepatitic lesion suspicious for mets, alcohol abuse Interval history: Patient seen and examined. Still has abdominal pain, denies any fever Objective - Exam Narrative Exam: Constitutional: Well-nourished well-developed. In no distress Head: Normocephalic atraumatic Eyes: Pupils are equal round and reactive to light Nose: No enlarged turbinates, no septal deviation. Mouth: Moist mucous membranes. Neck: Supple no thyromegaly. No bruit. No JVD Heart: Regular rate and rhythm, S1-S2 abnormal. No rubs murmurs or gallop Lungs: Clear to auscultation bilaterally no rales or rhonchi Abdomen: Soft, tender. Bowel sound are present. Extremities: No edema no cyanosis and no clubbing. Neuro: Alert oriented Oriented x3. No focal sensory or motor deficit. Skin: No rashes no hyperemic spots Psychiatry: Euthymic. Calm. - Constitutional Vitals: Vital Signs - 12hr 02/05/18 02/06/18 02/06/18 23:00 00:00 01:00 Temperature Pulse Rate 96 H 94 H Respiratory 22 14 25 H Rate Blood Pressure 164/99 154/103 154/100 Blood Pressure [Left] O2 Sat by Pulse 95 94 96 Oximetry 02/06/18 02/06/18 02/06/18 02:18 06:02 06:49 Temperature 98.4 F 98.6 F 98.6 F Pulse Rate 87 91 H 89 Respiratory 18 18 18 Rate Blood Pressure 169/102 143/104 Blood Pressure 141/94 [Left] O2 Sat by Pulse 93 93 96 Oximetry 02/06/18 07:18 Temperature 98.9 F Pulse Rate 94 H Respiratory 20 Rate Blood Pressure 150/99 Blood Pressure [Left] O2 Sat by Pulse 98 Oximetry - Labs CBC & Chem 7: 02/06/18 05:57 02/06/18 05:57 Labs: Abnormal lab results 02/05/18 02/05/18 02/05/18 Range/Units 18:00 18:05 18:05 RDW (13.2-15.2) % Lymph % (Auto) (13.4-35.0) % Levy % (Auto) (0.0-7.3) % Chloride (98-107) mmol/L BUN (7-17) mg/dL Creatinine (0.7-1.2) mg/dL Glucose (65-100) mg/dL AST 98 H (5-40) units/L ALT 59 H (7-56) units/L Lipase 218 H (13-60) units/L Urine pH (5.0-7.0) Salicylates < 0.3 L (2.8-20.0) mg/dL Acetaminophen < 5.0 L (10.0-30.0) ug/mL Plasma/Serum Alcohol (0-0.07) % 02/05/18 02/05/18 02/05/18 Range/Units 18:05 18:05 18:05 RDW 16.0 H (13.2-15.2) % Lymph % (Auto) 39.9 H (13.4-35.0) % Levy % (Auto) (0.0-7.3) % Chloride 97.5 L (98-107) mmol/L BUN 5 L (7-17) mg/dL Creatinine 0.6 L (0.7-1.2) mg/dL Glucose 151 H (65-100) mg/dL AST (5-40) units/L ALT (7-56) units/L Lipase (13-60) units/L Urine pH (5.0-7.0) Salicylates (2.8-20.0) mg/dL Acetaminophen (10.0-30.0) ug/mL Plasma/Serum Alcohol 0.20 H (0-0.07) % 02/05/18 02/06/18 02/06/18 Range/Units 19:57 05:57 05:57 RDW 16.1 H (13.2-15.2) % Lymph % (Auto) (13.4-35.0) % Levy % (Auto) 9.1 H (0.0-7.3) % Chloride (98-107) mmol/L BUN 6 L (7-17) mg/dL Creatinine 0.6 L (0.7-1.2) mg/dL Glucose 107 H (65-100) mg/dL AST (5-40) units/L ALT (7-56) units/L Lipase (13-60) units/L Urine pH 8.0 H (5.0-7.0) Salicylates (2.8-20.0) mg/dL Acetaminophen (10.0-30.0) ug/mL Plasma/Serum Alcohol (0-0.07) %
[2018-02-06] MEDS ORDERED: APRESOLINE IV PRN (10:49)
[2018-02-06 11:51] LABS: Chol/HDL Ratio 1.89 %
--- NOTE | 2018-02-06 11:56 | Gastroenterology Consultation ---
<FAREED BLANK - Last Filed: 02/06/18 12:10> History of Present Illness - Reason for Consult Consult date: 02/06/18 liver lesion Requesting physician: EVERARDO HOOD - History of Present Illness Patient is a 57 y/o female with PMH of ETOH abuse, anxiety, and colon cancer (s/ p resection) who presented to ED with c/o generalized abd pain and visual hallucinations. Upon admission lipase was found to be elevated and Abd CT showed liver lesions to which GI has been consulted. This morning pt was resting in bed w/o acute distress. Reports come mild continued generalized abd pain and nausea but no vomiting. Denies fever, wt loss, CP, SOB, jaundice, itching, or signs of bleeding. Has no known prior hx of liver disease but states she has a family hx of liver disease with multiple family members having cirrhosis due to alcohol. Drinks 1/2-1 pint of liquor a day. Admit to a hx of IV drug use in her 20s. Past History Past Medical History: other (colon cancer s/p resection, anxiety) Past Surgical History: hysterectomy, bowel surgery, Other (tubal ligation) Social history: smoking, alcohol abuse Family history: other (cirrhosis) Medications and Allergies Allergies Allergy/AdvReac Type Severity Reaction Status Date / Time No Known Allergies Allergy Verified 09/04/13 07:16 Home Medications Medication Instructions Recorded Confirmed Last Taken Type Hydrochlorothiazide 25 mg PO DAILY 09/04/13 02/05/18 09/04/13 05:00 History PARoxetine [Paxil] 20 mg PO DAILY 05/14/17 02/05/18 Unknown History Valsartan [Diovan] 160 mg PO QDAY #30 tablet 05/15/17 02/05/18 Unknown Rx Active Meds: Active Medications Acetaminophen (Tylenol) 650 mg PO Q4H PRN PRN Reason: Pain MILD(1-3)/Fever >100.5/CEDENO Albuterol (Proventil) 2.5 mg IH Q3HRT PRN PRN Reason: Shortness Of Breath Enoxaparin Sodium (Lovenox) 40 mg SUB-Q QDAY@2200 KYE Famotidine (Pepcid) 20 mg IV BID KYE Hydralazine HCl (Apresoline) 10 mg IV Q6HR PRN PRN Reason: HTN SBP>160 Sodium Chloride (Nacl 0.45% 1000 Ml) 1,000 mls @ 75 mls/hr IV DIRECT KYE Last Admin: 02/06/18 00:27 Dose: 75 mls/hr Levofloxacin/Dextrose (Levaquin 750mg/150ml) 750 mg in 150 mls @ 100 mls/hr IV Q24HR KYE; Protocol Lorazepam (Ativan) 2 mg PO Q1HR PRN PRN Reason: CIWA-Ar 8-15 Lorazepam (Ativan) 2 mg IV Q1HR PRN PRN Reason: CIWA-Ar 8-15 Last Admin: 02/06/18 02:45 Dose: 2 mg Lorazepam (Ativan) 4 mg IV Q1HR PRN PRN Reason: CIWA-Ar 16-25 Morphine Sulfate (Morphine) 2 mg IV Q4H PRN PRN Reason: Pain, Moderate (4-6) Last Admin: 02/06/18 05:08 Dose: 2 mg Ondansetron HCl (Zofran) 4 mg IV Q8H PRN PRN Reason: Nausea And Vomiting Last Admin: 02/06/18 02:45 Dose: 4 mg Paroxetine HCl (Paxil) 20 mg PO DAILY [facility] Sodium Chloride (Sodium Chloride Flush Syringe 10 Ml) 10 ml IV BID KYE Sodium Chloride (Sodium Chloride Flush Syringe 10 Ml) 10 ml IV PRN PRN PRN Reason: LINE FLUSH Valsartan (Diovan) 160 mg PO QDAY KYE Review of Systems - Review of Systems All systems: negative Gastrointestinal: abdominal pain, nausea Exam - Constitutional Vital Signs: Temp Pulse Resp BP Pulse Ox 98.9 F 94 H 20 150/99 98 02/06/18 07:18 02/06/18 07:18 02/06/18 07:18 02/06/18 07:18 02/06/18 07:18 General appearance: no acute distress, obese - EENT Eyes: PERRL, EOM intact ENT: hearing intact - Respiratory Respiratory: bilateral: diminished (anterior) - Cardiovascular Rhythm: regular Heart Sounds: Present: S1 & S2 - Gastrointestinal General gastrointestinal: Present: soft, tender (generalized TTP), non-distended , normal bowel sounds - Neurologic Neurological: alert and oriented x3 - Labs CBC & Chem 7: 02/06/18 05:57 02/06/18 05:57 Lab Results: Laboratory Results - last 24 hr 02/05/18 02/05/18 02/05/18 18:00 18:05 18:05 WBC RBC Hgb Hct MCV MCH MCHC RDW Plt Count Lymph % (Auto) [place] % (Auto) Eos % (Auto) Baso % (Auto) Lymph # [place] # Eos # Baso # Seg Neutrophils % Seg Neutrophils # Sodium Potassium Chloride Carbon Dioxide Anion Gap BUN Creatinine Estimated GFR BUN/Creatinine Ratio Glucose Calcium Total Bilirubin 0.30 Direct Bilirubin < 0.2 Indirect Bilirubin 0.1 AST 98 H ALT 59 H Alkaline Phosphatase 78 Total Protein 8.0 Albumin 4.1 Albumin/Globulin Ratio 1.1 Triglycerides Cholesterol LDL Cholesterol Direct HDL Cholesterol Cholesterol/HDL Ratio Lipase 218 H Urine Color Urine Turbidity Urine pH Ur Specific [place] Urine Protein Urine Glucose (UA) Urine Ketones Urine Blood Urine Nitrite Urine Bilirubin Urine Urobilinogen Ur Leukocyte Esterase Urine WBC (Auto) Urine RBC (Auto) Salicylates < 0.3 L Urine Opiates Screen Urine Methadone Screen Acetaminophen < 5.0 L Ur Barbiturates Screen Ur Phencyclidine Scrn Ur Amphetamines Screen U Benzodiazepines Scrn Urine Cocaine Screen U Marijuana (THC) Screen Drugs of Abuse Note Plasma/Serum Alcohol 02/05/18 02/05/18 02/05/18 18:05 18:05 18:05 WBC 5.4 RBC 4.76 Hgb 13.6 Hct 42.2 MCV 89 MCH 29 MCHC 32 RDW 16.0 H Plt Count 189 Lymph % (Auto) 39.[address] [place] % (Auto) 6.2 Eos % (Auto) 0.8 Baso % (Auto) 0.6 Lymph # 2.2 [place] # 0.3 Eos # 0.0 Baso # 0.0 Seg Neutrophils % 52.5 Seg Neutrophils # 2.8 Sodium 138 Potassium 4.3 Chloride 97.5 L Carbon Dioxide 26 Anion Gap 19 BUN 5 L Creatinine 0.6 L Estimated GFR > 60 BUN/Creatinine Ratio 8 Glucose 151 H Calcium 9.9 Total Bilirubin Direct Bilirubin Indirect Bilirubin AST ALT Alkaline Phosphatase Total Protein Albumin Albumin/Globulin Ratio Triglycerides Cholesterol LDL Cholesterol Direct HDL Cholesterol Cholesterol/HDL Ratio Lipase Urine Color Urine Turbidity Urine pH Ur Specific [place] Urine Protein Urine Glucose (UA) Urine Ketones Urine Blood Urine Nitrite Urine Bilirubin Urine Urobilinogen Ur Leukocyte Esterase Urine WBC (Auto) Urine RBC (Auto) Salicylates Urine Opiates Screen Urine Methadone Screen Acetaminophen Ur Barbiturates Screen Ur Phencyclidine Scrn Ur Amphetamines Screen U Benzodiazepines Scrn Urine Cocaine Screen U Marijuana (THC) Screen Drugs of Abuse Note Plasma/Serum Alcohol 0.20 H 02/05/18 02/05/18 02/06/18 19:57 19:57 05:57 WBC 5.2 RBC 4.58 Hgb 13.1 Hct 40.3 MCV 88 MCH 29 MCHC 32 RDW 16.1 H Plt Count 162 Lymph % (Auto) 27.8 [place] % (Auto) 9.1 H Eos % (Auto) 0.4 Baso % (Auto) 0.1 Lymph # 1.4 [place] # 0.5 Eos # 0.0 Baso # 0.0 Seg Neutrophils % 62.6 Seg Neutrophils # 3.3 Sodium Potassium Chloride Carbon Dioxide Anion Gap BUN Creatinine Estimated GFR BUN/Creatinine Ratio Glucose Calcium Total Bilirubin Direct Bilirubin Indirect Bilirubin AST ALT Alkaline Phosphatase Total Protein Albumin Albumin/Globulin Ratio Triglycerides Cholesterol LDL Cholesterol Direct HDL Cholesterol Cholesterol/HDL Ratio Lipase Urine Color Straw Urine Turbidity Clear Urine pH 8.0 H Ur Specific [place] 1.008 Urine Protein <15 mg/dl Urine Glucose (UA) 50 Urine Ketones Neg Urine Blood Neg Urine Nitrite Neg Urine Bilirubin Neg Urine Urobilinogen < 2.0 Ur Leukocyte Esterase Neg Urine WBC (Auto) < 1.0 Urine RBC (Auto) 3.0 Salicylates Urine Opiates Screen Presumptive negative Urine Methadone Screen Presumptive negative Acetaminophen Ur Barbiturates Screen Presumptive negative Ur Phencyclidine Scrn Presumptive negative Ur Amphetamines Screen Presumptive negative U Benzodiazepines Scrn Presumptive negative Urine Cocaine Screen Presumptive negative U Marijuana (THC) Screen Presumptive negative Drugs of Abuse Note Disclamer Plasma/Serum Alcohol 02/06/18 02/06/18 05:57 05:57 WBC RBC Hgb Hct MCV MCH MCHC RDW Plt Count Lymph % (Auto) [place] % (Auto) Eos % (Auto) Baso % (Auto) Lymph # [place] # Eos # Baso # Seg Neutrophils % Seg Neutrophils # Sodium 140 Potassium 3.8 Chloride 98.4 Carbon Dioxide 28 Anion Gap 17 BUN 6 L Creatinine 0.6 L Estimated GFR > 60 BUN/Creatinine Ratio 10 Glucose 107 H Calcium 8.9 Total Bilirubin Direct Bilirubin Indirect Bilirubin AST ALT Alkaline Phosphatase Total Protein Albumin Albumin/Globulin Ratio Triglycerides 102 Cholesterol 189 LDL Cholesterol Direct 98 HDL Cholesterol 100 H Cholesterol/HDL Ratio 1.89 Lipase 220 H Urine Color Urine Turbidity Urine pH Ur Specific [place] Urine Protein Urine Glucose (UA) Urine Ketones Urine Blood Urine Nitrite Urine Bilirubin Urine Urobilinogen Ur Leukocyte Esterase Urine WBC (Auto) Urine RBC (Auto) Salicylates Urine Opiates Screen Urine Methadone Screen Acetaminophen Ur Barbiturates Screen Ur Phencyclidine Scrn Ur Amphetamines Screen U Benzodiazepines Scrn Urine Cocaine Screen U Marijuana (THC) Screen Drugs of Abuse Note Plasma/Serum Alcohol Assessment and Plan 1.liver lesion 2.pancreatitis 3.ETOH abuse 4.h/o colon cancer (s/p resection) -abd CT showed liver lesions -afebile -wBC WNL -lipase 220 -plt 162, AST 98, ALT 59, alk phos 78, T.lucretia 0.30 -will order acute hepatitis panel, AFP, and MRI/MRCP for further evaluation -continue to trend labs and supportive care -CIWA protocol (alcohol cessation discussed with pt) -further recommendations to follow <DIANA PRINCE R - Last Filed: 02/06/18 15:48> Medications and Allergies Active Meds: Active Medications Acetaminophen (Tylenol) 650 mg PO Q4H PRN PRN Reason: Pain MILD(1-3)/Fever >100.5/CEDENO Albuterol (Proventil) 2.5 mg IH Q3HRT PRN PRN Reason: Shortness Of Breath Enoxaparin Sodium (Lovenox) 40 mg SUB-Q QDAY@2200 KYE Famotidine (Pepcid) 20 mg IV BID [facility] Last Admin: 02/06/18 10:44 Dose: 20 mg Hydralazine HCl (Apresoline) 10 mg IV Q6HR PRN PRN Reason: HTN SBP>160 Sodium Chloride (Nacl 0.45% 1000 Ml) 1,000 mls @ 75 mls/hr IV DIRECT [facility] Last Admin: 02/06/18 00:27 Dose: 75 mls/hr Levofloxacin/Dextrose (Levaquin 750mg/150ml) 750 mg in 150 mls @ 100 mls/hr IV Q24HR [facility]; Protocol Last Admin: 02/06/18 12:43 Dose: 100 mls/hr Lorazepam (Ativan) 2 mg IV Q1HR PRN PRN Reason: [facility]-Ar 8-15 Last Admin: 02/06/18 02:45 Dose: 2 mg Lorazepam (Ativan) 4 mg IV Q1HR PRN PRN Reason: CIWA-Ar 16-25 Morphine Sulfate (Morphine) 2 mg IV Q4H PRN PRN Reason: Pain, Moderate (4-6) Last Admin: 02/06/18 05:08 Dose: 2 mg Ondansetron HCl (Zofran) 4 mg IV Q8H PRN PRN Reason: Nausea And Vomiting Last Admin: 02/06/18 02:45 Dose: 4 mg Paroxetine HCl (Paxil) 20 mg PO DAILY [facility] Last Admin: 02/06/18 10:42 Dose: 20 mg Sodium Chloride (Sodium Chloride Flush Syringe 10 Ml) 10 ml IV BID [facility] Last Admin: 02/06/18 10:43 Dose: 10 ml Sodium Chloride (Sodium Chloride Flush Syringe 10 Ml) 10 ml IV PRN PRN PRN Reason: LINE FLUSH Valsartan (Diovan) 160 mg PO QDAY [facility] Last Admin: 02/06/18 10:42 Dose: 160 mg Exam - Constitutional Vital Signs: Temp Pulse Resp BP Pulse Ox 98.9 F 94 H 20 150/99 98 02/06/18 07:18 02/06/18 07:18 02/06/18 07:18 02/06/18 07:18 02/06/18 10:12 - Labs CBC & Chem 7: 02/06/18 05:57 02/06/18 05:57 Lab Results: Laboratory Results - last 24 hr 02/05/18 02/05/18 02/05/18 18:00 18:05 18:05 WBC RBC Hgb Hct MCV MCH MCHC RDW Plt Count Lymph % (Auto) [place] % (Auto) Eos % (Auto) Baso % (Auto) Lymph # [place] # Eos # Baso # Seg Neutrophils % Seg Neutrophils # Sodium Potassium Chloride Carbon Dioxide Anion Gap BUN Creatinine Estimated GFR BUN/Creatinine Ratio Glucose Calcium Total Bilirubin 0.30 Direct Bilirubin < 0.2 Indirect Bilirubin 0.1 AST 98 H ALT 59 H Alkaline Phosphatase 78 Total Protein 8.0 Albumin 4.1 Albumin/Globulin Ratio 1.1 Triglycerides Cholesterol LDL Cholesterol Direct HDL Cholesterol Cholesterol/HDL Ratio Lipase 218 H Urine Color Urine Turbidity Urine pH Ur Specific [place] Urine Protein Urine Glucose (UA) Urine Ketones Urine Blood Urine Nitrite Urine Bilirubin Urine Urobilinogen Ur Leukocyte Esterase Urine WBC (Auto) Urine RBC (Auto) Salicylates < 0.3 L Urine Opiates Screen Urine Methadone Screen Acetaminophen < 5.0 L Ur Barbiturates Screen Ur Phencyclidine Scrn Ur Amphetamines Screen U Benzodiazepines Scrn Urine Cocaine Screen U Marijuana (THC) Screen Drugs of Abuse Note Plasma/Serum Alcohol 02/05/18 02/05/18 02/05/18 18:05 18:05 18:05 WBC 5.4 RBC 4.76 Hgb 13.6 Hct 42.2 MCV 89 MCH 29 MCHC 32 RDW 16.0 H Plt Count 189 Lymph % (Auto) 39.[address] [place] % (Auto) 6.2 Eos % (Auto) 0.8 Baso % (Auto) 0.6 Lymph # 2.2 [place] # 0.3 Eos # 0.0 Baso # 0.0 Seg Neutrophils % 52.5 Seg Neutrophils # 2.8 Sodium 138 Potassium 4.3 Chloride 97.5 L Carbon Dioxide 26 Anion Gap 19 BUN 5 L Creatinine 0.6 L Estimated GFR > 60 BUN/Creatinine Ratio 8 Glucose 151 H Calcium 9.9 Total Bilirubin Direct Bilirubin Indirect Bilirubin AST ALT Alkaline Phosphatase Total Protein Albumin Albumin/Globulin Ratio Triglycerides Cholesterol LDL Cholesterol Direct HDL Cholesterol Cholesterol/HDL Ratio Lipase Urine Color Urine Turbidity Urine pH Ur Specific [place] Urine Protein Urine Glucose (UA) Urine Ketones Urine Blood Urine Nitrite Urine Bilirubin Urine Urobilinogen Ur Leukocyte Esterase Urine WBC (Auto) Urine RBC (Auto) Salicylates Urine Opiates Screen Urine Methadone Screen Acetaminophen Ur Barbiturates Screen Ur Phencyclidine Scrn Ur Amphetamines Screen U Benzodiazepines Scrn Urine Cocaine Screen U Marijuana (THC) Screen Drugs of Abuse Note Plasma/Serum Alcohol 0.20 H 02/05/18 02/05/18 02/06/18 19:57 19:57 05:57 WBC 5.2 RBC 4.58 Hgb 13.1 Hct 40.3 MCV 88 MCH 29 MCHC 32 RDW 16.1 H Plt Count 162 Lymph % (Auto) 27.8 [place] % (Auto) 9.1 H Eos % (Auto) 0.4 Baso % (Auto) 0.1 Lymph # 1.4 [place] # 0.5 Eos # 0.0 Baso # 0.0 Seg Neutrophils % 62.6 Seg Neutrophils # 3.3 Sodium Potassium Chloride Carbon Dioxide Anion Gap BUN Creatinine Estimated GFR BUN/Creatinine Ratio Glucose Calcium Total Bilirubin Direct Bilirubin Indirect Bilirubin AST ALT Alkaline Phosphatase Total Protein Albumin Albumin/Globulin Ratio Triglycerides Cholesterol LDL Cholesterol Direct HDL Cholesterol Cholesterol/HDL Ratio Lipase Urine Color Straw Urine Turbidity Clear Urine pH 8.0 H Ur Specific [place] 1.008 Urine Protein <15 mg/dl Urine Glucose (UA) 50 Urine Ketones Neg Urine Blood Neg Urine Nitrite Neg Urine Bilirubin Neg Urine Urobilinogen < 2.0 Ur Leukocyte Esterase Neg Urine WBC (Auto) < 1.0 Urine RBC (Auto) 3.0 Salicylates Urine Opiates Screen Presumptive negative Urine Methadone Screen Presumptive negative Acetaminophen Ur Barbiturates Screen Presumptive negative Ur Phencyclidine Scrn Presumptive negative Ur Amphetamines Screen Presumptive negative U Benzodiazepines Scrn Presumptive negative Urine Cocaine Screen Presumptive negative U Marijuana (THC) Screen Presumptive negative Drugs of Abuse Note Disclamer Plasma/Serum Alcohol 02/06/18 02/06/18 05:57 05:57 WBC RBC Hgb Hct MCV MCH MCHC RDW Plt Count Lymph % (Auto) [place] % (Auto) Eos % (Auto) Baso % (Auto) Lymph # [place] # Eos # Baso # Seg Neutrophils % Seg Neutrophils # Sodium 140 Potassium 3.8 Chloride 98.4 Carbon Dioxide 28 Anion Gap 17 BUN 6 L Creatinine 0.6 L Estimated GFR > 60 BUN/Creatinine Ratio 10 Glucose 107 H Calcium 8.9 Total Bilirubin Direct Bilirubin Indirect Bilirubin AST ALT Alkaline Phosphatase Total Protein Albumin Albumin/Globulin Ratio Triglycerides 102 Cholesterol 189 LDL Cholesterol Direct 98 HDL Cholesterol 100 H Cholesterol/HDL Ratio 1.89 Lipase 220 H Urine Color Urine Turbidity Urine pH Ur Specific [place] Urine Protein Urine Glucose (UA) Urine Ketones Urine Blood Urine Nitrite Urine Bilirubin Urine Urobilinogen Ur Leukocyte Esterase Urine WBC (Auto) Urine RBC (Auto) Salicylates Urine Opiates Screen Urine Methadone Screen Acetaminophen Ur Barbiturates Screen Ur Phencyclidine Scrn Ur Amphetamines Screen U Benzodiazepines Scrn Urine Cocaine Screen U Marijuana (THC) Screen Drugs of Abuse Note Plasma/Serum Alcohol Assessment and Plan Pt seen and examined. Pt intoxicated with EtOH = 0.2 on admission. F/u on MRI to assess liver lesions. Otherwise as above.
[2018-02-06] MEDS: LEVAQUIN 750MG/150ML 750 MG/150 ML BAG IV SCH (12:43)
[2018-02-06] MEDS: LOVENOX SUB-Q SCH (22:15)
[2018-02-07] MEDS: MORPHINE IV PRN ×4 (05:22→19:51)
[2018-02-07 05:44] LABS: Basophils % (Auto) 0.2 % (0.0-1.8); Eosinophils % (Auto) 0.7 % (0.0-4.3); Hematocrit 39.8 % (30.3-42.9); Hemoglobin 13.2 gm/dl (10.1-14.3); Lymphocytes # (Auto) 1.3 K/mm3 (1.2-5.4); Lymphocytes % (Auto) 20.1 % (13.4-35.0); Mean Corpuscular HGB Conc 33 % (30-34); Mean Corpuscular Hemoglobin 29 pg (28-32); Mean Corpuscular Volume 89 fl (79-97); Monocytes # (Auto) 0.6 K/mm3 (0.0-0.8); Monocytes % (Auto) 8.6 % (0.0-7.3); Platelet Count 153 K/mm3 (140-440); Red Cell Distribution Width 15.6 % (13.2-15.2)
[2018-02-07 05:54] LABS: INR 1.09 (0.87-1.13)
[2018-02-07 06:43] LABS: Alanine Aminotransferase 38 units/L (7-56); Albumin 3.8 g/dL (3.9-5); BUN/Creatinine Ratio 14; Blood Urea Nitrogen 10 mg/dL (7-17); Calcium 9.1 mg/dL (8.4-10.2); Hemolysis Index 0
[2018-02-07 06:50] LABS: Hepatitis A Antibody IgM Non-Reactive (NonReactive); Hepatitis B Core IgM Non-Reactive (NonReactive); Hepatitis B Surface Antigen Non-Reactive (Negative); Hepatitis C Virus Antibody Reactive (NonReactive)
--- NOTE | 2018-02-07 09:18 | Progress Note ---
Assessment and Plan 57 -year-old lady with a history of hypertension, removal of colonic polyps that were cancerous comes emergency room with complaints of abdominal pain which she stated is a little over, described as a tightness, radiating to the back, intensity 7/10, constant, CAD identify exacerbating factor, relieved with IV pain medication. Complains of nausea and vomiting. History of alcohol abuse , last drink was this morning. Emergency room physician reported that the patient had visual hallucinations Alcohol and pancreatitis Alcohol withdrawal Liver lesions suspicious for metastasis Hypertension History of malignant polyps Plan Start IV fluid, CIWA protocol with IV Ativan Nothing by mouth IV Pepcid, IV Levaquin Blood pressure controlled Reactive Hep C antibody Elevated lipase indicative of pancreatic involvement Monitor hypophosphatemia and hypomagnesemia GI consulted, recommended MRI evaluation of liver lesions CT abdomen indicated: previous R colon resection without obstruction, 4 subtle hepatic subcentimeter lesions, free fluid in bony pelvis Order MRI abdomen for further evaluation of liver lesions Continue DVT prophylaxis Subjective Date of service: 02/07/18 Principal diagnosis: alcoholic pancreatitis, hepatitic lesion suspicious for mets, alcohol abuse Interval history: Patient seen and examined. Still has abdominal pain radiating to back, denies any fever Objective - Exam Narrative Exam: Constitutional: Well-nourished well-developed. In no distress Head: Normocephalic atraumatic Eyes: Pupils are equal round and reactive to light Nose: No enlarged turbinates, no septal deviation. Mouth: Moist mucous membranes. Neck: Supple no thyromegaly. No bruit. No JVD Heart: Regular rate and rhythm, S1-S2 abnormal. No rubs murmurs or gallop Lungs: Clear to auscultation bilaterally no rales or rhonchi Abdomen: Soft, generalized tender to palpation. non-distended Bowel sound are present. Extremities: No edema no cyanosis and no clubbing. Neuro: Alert oriented Oriented x3. No focal sensory or motor deficit. Skin: No rashes no hyperemic spots Psychiatry: Euthymic. Calm. - Constitutional Vitals: Vital Signs - 12hr 02/06/18 23:39 Temperature 99.3 F Pulse Rate 95 H Respiratory 20 Rate Blood Pressure 138/96 O2 Sat by Pulse 95 Oximetry - Labs CBC & Chem 7: 02/07/18 05:05 02/07/18 05:05 Labs: Abnormal lab results 05/02/07/18 02/07/18 Range/Units 05:57 05:05 05:05 RDW 15.6 H (13.2-15.2) % [place] % (Auto) 8.6 H (0.0-7.3) % Seg Neutrophils % 70.4 H (40.0-70.0) % Sodium 136 L (137-145) mmol/L Chloride 95.3 L (98-107) mmol/L Phosphorus 2.40 L (2.5-4.5) mg/dL Magnesium 1.40 L (1.7-2.3) mg/dL Albumin 3.8 L (3.9-5) g/dL HDL Cholesterol 100 H (40-59) mg/dL Lipase 220 H (13-60) units/L Hepatitis C Antibody (NonReactive) 02/07/18 Range/Units 05:05 RDW (13.2-15.2) % [place] % (Auto) (0.0-7.3) % Seg Neutrophils % (40.0-70.0) % Sodium (137-145) mmol/L Chloride (98-107) mmol/L Phosphorus (2.5-4.5) mg/dL Magnesium (1.7-2.3) mg/dL Albumin (3.9-5) g/dL HDL Cholesterol (40-59) mg/dL Lipase (13-60) units/L Hepatitis C Antibody Reactive A (NonReactive)
[2018-02-07] MEDS: NACL 0.45% 1000 ML 1,000 ML IV SCH (10:09)
[2018-02-07] MEDS: LEVAQUIN 750MG/150ML 750 MG/150 ML BAG IV SCH (10:09)
[2018-02-07] MEDS: PEPCID IV SCH ×2 (10:11→22:01)
[2018-02-07] MEDS: SODIUM CHLORIDE FLUSH SYRINGE 10 ML IV SCH ×2 (10:11→22:02)
--- NOTE | 2018-02-07 14:32 | Gastroenterology Progress Note ---
Assessment and Plan 1.liver lesion 2.pancreatitis 3.ETOH abuse 4.h/o colon cancer (s/p resection) -abd CT showed liver lesions -LFTs improved -AFP level pending -Hepatitis C antibody positive- treatment per outpatient -etiology unclear-possible HCC vs mets vs other -continue to trend labs and supportive care -[facility] protocol -further recommendations to follow MRI results Subjective Date of service: 02/07/18 Principal diagnosis: liver lesion Interval history: No acute distress or events overnight. Objective - Constitutional Vitals: Temp Pulse Resp BP Pulse Ox 99.3 F 95 H 20 138/96 94 02/06/18 23:39 02/06/18 23:39 02/06/18 23:39 02/06/18 23:39 02/07/18 08:17 General appearance: no acute distress, obese - Respiratory Respiratory: bilateral: CTA - Cardiovascular Rhythm: regular Heart Sounds: Present: S1 & S2 - Gastrointestinal General gastrointestinal: Present: soft, tender (mild generalized TTP), non- distended, normal bowel sounds - Labs CBC & Chem 7: 02/07/18 05:05 02/07/18 05:05 Labs: Laboratory Results - last 24 hr 02/07/18 02/07/18 02/07/18 05:05 05:05 05:05 WBC 6.7 RBC 4.50 Hgb 13.2 Hct 39.8 MCV 89 MCH 29 MCHC 33 RDW 15.6 H Plt Count 153 Lymph % (Auto) 20.1 [place] % (Auto) 8.6 H Eos % (Auto) 0.7 Baso % (Auto) 0.2 Lymph # 1.3 [place] # 0.6 Eos # 0.0 Baso # 0.0 Seg Neutrophils % 70.4 H Seg Neutrophils # 4.7 PT 14.7 INR 1.09 Sodium 136 L Potassium 4.0 Chloride 95.3 L Carbon Dioxide 27 Anion Gap 18 BUN 10 Creatinine 0.7 Estimated GFR > 60 BUN/Creatinine Ratio 14 Glucose 94 Calcium 9.1 Phosphorus 2.40 L Magnesium 1.40 L Total Bilirubin 1.20 AST 35 ALT 38 Alkaline Phosphatase 68 Total Protein 7.1 Albumin 3.8 L Albumin/Globulin Ratio 1.2 Hepatitis A IgM Ab Hep Bs Antigen Hep B Core IgM Ab Hepatitis C Antibody 02/07/18 05:05 WBC RBC Hgb Hct MCV MCH MCHC RDW Plt Count Lymph % (Auto) [place] % (Auto) Eos % (Auto) Baso % (Auto) Lymph # [place] # Eos # Baso # Seg Neutrophils % Seg Neutrophils # PT INR Sodium Potassium Chloride Carbon Dioxide Anion Gap BUN Creatinine Estimated GFR BUN/Creatinine Ratio Glucose Calcium Phosphorus Magnesium Total Bilirubin AST ALT Alkaline Phosphatase Total Protein Albumin Albumin/Globulin Ratio Hepatitis A IgM Ab Non-reactive Hep Bs Antigen Non-reactive Hep B Core IgM Ab Non-reactive Hepatitis C Antibody Reactive A
[2018-02-07] MEDS: PAXIL PO SCH (15:55)
[2018-02-07] MEDS: LOVENOX SUB-Q SCH (22:01)
[2018-02-07] MEDS: ATIVAN IV PRN (22:01)
[2018-02-08] MEDS: MORPHINE IV PRN ×2 (00:01→11:14)
[2018-02-08 07:02] LABS: Basophils % (Auto) 0.2 % (0.0-1.8); Eosinophils # (Auto) 0.1 K/mm3 (0.0-0.4); Eosinophils % (Auto) 1.2 % (0.0-4.3); Hematocrit 36.8 % (30.3-42.9); Hemoglobin 12.1 gm/dl (10.1-14.3); Lymphocytes # (Auto) 1.3 K/mm3 (1.2-5.4); Lymphocytes % (Auto) 19.7 % (13.4-35.0); Mean Corpuscular HGB Conc 33 % (30-34); Mean Corpuscular Hemoglobin 29 pg (28-32); Mean Corpuscular Volume 89 fl (79-97); Monocytes # (Auto) 0.6 K/mm3 (0.0-0.8); Monocytes % (Auto) 8.4 % (0.0-7.3); Platelet Count 129 K/mm3 (140-440); Red Blood Count 4.15 M/mm3 (3.65-5.03); Red Cell Distribution Width 15.4 % (13.2-15.2)
[2018-02-08 07:24] LABS: Alanine Aminotransferase 27 units/L (7-56); Albumin 3.3 g/dL (3.9-5); BUN/Creatinine Ratio 15; Blood Urea Nitrogen 9 mg/dL (7-17); Calcium 8.9 mg/dL (8.4-10.2); Hemolysis Index 12
--- NOTE | 2018-02-08 10:10 | Gastroenterology Progress Note ---
<ZULLY BLAKE - Last Filed: 02/08/18 10:08> Assessment and Plan 1.liver lesion 2.pancreatitis 3.ETOH abuse 4.h/o colon cancer (s/p resection) -abd CT showed liver lesions -LFTs improved>>>normal -AFP level pending -Hepatitis C antibody positive- treatment per outpatient -etiology unclear-possible HCC vs mets vs other -continue to trend labs and supportive care -[facility] protocol -further recommendations to follow MRI resultsf>>>>MRI results are pending -INR stable. Subjective Date of service: 02/08/18 Principal diagnosis: liver lesion Interval history: No acute events overnight. Tolerating diet this AM Objective - Constitutional Vitals: Temp Pulse Resp BP Pulse Ox 98.6 F 82 18 130/82 96 02/08/18 07:24 02/08/18 07:24 02/08/18 07:24 02/08/18 07:24 02/08/18 07:24 General appearance: no acute distress - EENT Eyes: EOM intact ENT: hearing intact - Neck Neck: supple - Gastrointestinal General gastrointestinal: Present: soft, non-tender, normal bowel sounds - Integumentary Integumentary: Present: warm - Neurologic Neurological: alert and oriented x3 - Labs CBC & Chem 7: 02/08/18 05:20 02/08/18 05:20 Labs: Laboratory Results - last 24 hr 02/08/18 02/08/18 05:20 05:20 WBC 6.6 RBC 4.15 Hgb 12.1 Hct 36.8 MCV 89 MCH 29 MCHC 33 RDW 15.4 H Plt Count 129 L Lymph % (Auto) 19.7 [place] % (Auto) 8.4 H Eos % (Auto) 1.2 Baso % (Auto) 0.2 Lymph # 1.3 [place] # 0.6 Eos # 0.1 Baso # 0.0 Seg Neutrophils % 70.5 H Seg Neutrophils # 4.7 Sodium 139 Potassium 3.7 Chloride 99.0 Carbon Dioxide 25 Anion Gap 19 BUN 9 Creatinine 0.6 L Estimated GFR > 60 BUN/Creatinine Ratio 15 Glucose 94 Calcium 8.9 Total Bilirubin 1.00 AST 25 ALT 27 Alkaline Phosphatase 59 Total Protein 6.9 Albumin 3.3 L Albumin/Globulin Ratio 0.9 <DIANA PRINCE - Last Filed: 02/08/18 13:49> Assessment and Plan Pt doing well. CT and MRI reviewed. Likely has simple cysts, but cannot be sure. Okay to D/C pt to home, and f/u with GI in 1 month, for repeat CT of liver to assess lesions, after 3 months. Objective - Constitutional Vitals: Temp Pulse Resp BP Pulse Ox 98.6 F 80 16 144/97 95 02/08/18 11:39 02/08/18 11:39 02/08/18 11:44 02/08/18 11:39 02/08/18 11:39 - Labs CBC & Chem 7: 02/08/18 05:20 02/08/18 05:20 Labs: Laboratory Results - last 24 hr 02/08/18 02/08/18 02/08/18 05:20 05:20 05:20 WBC 6.6 RBC 4.15 Hgb 12.1 Hct 36.8 MCV 89 MCH 29 MCHC 33 RDW 15.4 H Plt Count 129 L Lymph % (Auto) 19.7 [place] % (Auto) 8.4 H Eos % (Auto) 1.2 Baso % (Auto) 0.2 Lymph # 1.3 [place] # 0.6 Eos # 0.1 Baso # 0.0 Seg Neutrophils % 70.5 H Seg Neutrophils # 4.7 Sodium 139 Potassium 3.7 Chloride 99.0 Carbon Dioxide 25 Anion Gap 19 BUN 9 Creatinine 0.6 L Estimated GFR > 60 BUN/Creatinine Ratio 15 Glucose 94 Calcium 8.9 Total Bilirubin 1.00 AST 25 ALT 27 Alkaline Phosphatase 59 Total Protein 6.9 Albumin 3.3 L Albumin/Globulin Ratio 0.9 Lipase 28
[2018-02-08] MEDS ORDERED: LEVAQUIN PO SCH (11:00)
[2018-02-08] MEDS ORDERED: PEPCID PO SCH (11:00)
[2018-02-08] MEDS: PAXIL PO SCH (11:16)
[2018-02-08] MEDS: DIOVAN PO SCH (11:18)
--- NOTE | 2018-02-08 11:20 | Magnetic Resonance Report ---
FINAL REPORT EXAM: MR ABDOMEN MRCP HISTORY: liver lesion, pancreatitis, elevated LFTs TECHNIQUE: MRCP imaging of the abdomen. No IV contrast administered. PRIORS: None. FINDINGS: Inferior to the pancreatic head there is a small amount of free fluid as well as some stranding. This may relate to acute pancreatitis. There is some duodenal prominence in the region which may reflect associated duodenitis. There is no biliary dilatation seen. There is no biliary stricture or filling defect identified. Pancreatic duct is unremarkable. There are the several very tiny liver lesions in the right lobe. These are not reliably characterized without contrast. They may be small cysts or hemangiomas. Largest adjacent to the middle a patent vein is about 7 mm. IMPRESSION: Probable mild acute pancreatitis. Adjacent duodenal prominence could represent associated duodenitis. No biliary dilatation, filling defect or stricture seen. Subcentimeter liver lesions are not characterized without IV contrast.
[2018-02-08] MEDS: SODIUM CHLORIDE FLUSH SYRINGE 10 ML IV SCH (11:25)
--- NOTE | 2018-02-08 11:56 | Progress Note ---
Assessment and Plan Assessment and plan: 57 -year-old lady with a history of hypertension, removal of colonic polyps that were cancerous comes emergency room with complaints of abdominal pain which she stated is a little over, described as a tightness, radiating to the back, intensity 7/10, constant, CAD identify exacerbating factor, relieved with IV pain medication. Complains of nausea and vomiting. History of alcohol abuse , last drink was this morning. Emergency room physician reported that the patient had visual hallucinations Alcohol and pancreatitis Alcohol withdrawal Liver lesions suspicious for metastasis Hypertension History of malignant polyps Plan Start IV fluid, CIWA protocol with IV Ativan Nothing by mouth IV Pepcid, IV Levaquin Blood pressure controlled Reactive Hep C antibody Elevated lipase indicative of pancreatic involvement Monitor hypophosphatemia and hypomagnesemia GI consulted, recommended MRI evaluation of liver lesions CT abdomen indicated: previous R colon resection without obstruction, 4 subtle hepatic subcentimeter lesions, free fluid in bony pelvis Order MRI abdomen for further evaluation of liver lesions Continue DVT prophylaxis Hospitalist Physical - Constitutional Vitals: Temp Pulse Resp BP Pulse Ox 98.6 F 82 18 130/82 96 02/08/18 07:24 02/08/18 07:24 02/08/18 07:24 02/08/18 07:24 02/08/18 07:24 Results - Labs CBC & Chem 7: 02/08/18 05:20 02/08/18 05:20 Labs: Laboratory Last Values WBC 6.6 K/mm3 (4.5-11.0) 02/08/18 05:20 RBC 4.15 M/mm3 (3.65-5.03) 02/08/18 05:20 Hgb 12.1 gm/dl (10.1-14.3) 02/08/18 05:20 Hct 36.8 % (30.3-42.9) 02/08/18 05:20 MCV 89 fl (79-97) 02/08/18 05:20 MCH 29 pg (28-32) 02/08/18 05:20 MCHC 33 % (30-34) 02/08/18 05:20 RDW 15.4 % (13.2-15.2) H 02/08/18 05:20 Plt Count 129 K/mm3 (140-440) L 02/08/18 05:20 Lymph % (Auto) 19.7 % (13.4-35.0) 02/08/18 05:20 [place] % (Auto) 8.4 % (0.0-7.3) H 02/08/18 05:20 Eos % (Auto) 1.2 % (0.0-4.3) 02/08/18 05:20 Baso % (Auto) 0.2 % (0.0-1.8) 02/08/18 05:20 Lymph # 1.3 K/mm3 (1.2-5.4) 02/08/18 05:20 [place] # 0.6 K/mm3 (0.0-0.8) 02/08/18 05:20 Eos # 0.1 K/mm3 (0.0-0.4) 02/08/18 05:20 Baso # 0.0 K/mm3 (0.0-0.1) 02/08/18 05:20 Seg Neutrophils % 70.5 % (40.0-70.0) H 02/08/18 05:20 Seg Neutrophils # 4.7 K/mm3 (1.8-7.7) 02/08/18 05:20 PT 14.7 Sec. (12.2-14.9) 02/07/18 05:05 INR 1.09 (0.87-1.13) 02/07/18 05:05 Sodium 139 mmol/L (137-145) 02/08/18 05:20 Potassium 3.7 mmol/L (3.6-5.0) 02/08/18 05:20 Chloride 99.0 mmol/L (98-107) 02/08/18 05:20 Carbon Dioxide 25 mmol/L (22-30) 02/08/18 05:20 Anion Gap 19 mmol/L 02/08/18 05:20 BUN 9 mg/dL (7-17) 02/08/18 05:20 Creatinine 0.6 mg/dL (0.7-1.2) L 02/08/18 05:20 Estimated GFR > 60 ml/min 02/08/18 05:20 BUN/Creatinine Ratio 15 % 02/08/18 05:20 Glucose 94 mg/dL (65-100) 02/08/18 05:20 Calcium 8.9 mg/dL (8.4-10.2) 02/08/18 05:20 Phosphorus 2.40 mg/dL (2.5-4.5) L 02/07/18 05:05 Magnesium 1.40 mg/dL (1.7-2.3) L 02/07/18 05:05 Total Bilirubin 1.00 mg/dL (0.1-1.2) 02/08/18 05:20 Direct Bilirubin < 0.2 mg/dL (0-0.2) 02/05/18 18:00 Indirect Bilirubin 0.1 mg/dL 02/05/18 18:00 AST 25 units/L (5-40) 02/08/18 05:20 ALT 27 units/L (7-56) 02/08/18 05:20 Alkaline Phosphatase 59 units/L (35-129) 02/08/18 05:20 Total Protein 6.9 g/dL (6.3-8.2) 02/08/18 05:20 Albumin 3.3 g/dL (3.9-5) L 02/08/18 05:20 Albumin/Globulin Ratio 0.9 % 02/08/18 05:20 Triglycerides 102 mg/dL (2-149) 02/06/18 05:57 Cholesterol 189 mg/dL (50-199) 02/06/18 05:57 LDL Cholesterol Direct 98 mg/dL (50-130) 02/06/18 05:57 HDL Cholesterol 100 mg/dL (40-59) H 02/06/18 05:57 Cholesterol/HDL Ratio 1.89 % 02/06/18 05:57 Lipase 220 units/L (13-60) H 02/06/18 05:57 Urine Color Straw (Yellow) 02/05/18 19:57 Urine Turbidity Clear (Clear) 02/05/18 19:57 Urine pH 8.0 (5.0-7.0) H 02/05/18 19:57 Ur Specific [place] 1.008 (1.003-1.030) 02/05/18 19:57 Urine Protein <15 mg/dl mg/dL (Negative) 02/05/18 19:57 Urine Glucose (UA) 50 mg/dL (Negative) 02/05/18 19:57 Urine Ketones Neg mg/dL (Negative) 02/05/18 19:57 Urine Blood Neg (Negative) 02/05/18 19:57 Urine Nitrite Neg (Negative) 02/05/18 19:57 Urine Bilirubin Neg (Negative) 02/05/18 19:57 Urine Urobilinogen < 2.0 mg/dL (<2.0) 02/05/18 19:57 Ur Leukocyte Esterase Neg (Negative) 02/05/18 19:57 Urine WBC (Auto) < 1.0 /HPF (0.0-6.0) 02/05/18 19:57 Urine RBC (Auto) 3.0 /HPF (0.0-6.0) 02/05/18 19:57 Salicylates < 0.3 mg/dL (2.8-20.0) L 02/05/18 18:05 Urine Opiates Screen Presumptive negative 02/05/18 19:57 Urine Methadone Screen Presumptive negative 02/05/18 19:57 Acetaminophen < 5.0 ug/mL (10.0-30.0) L 02/05/18 18:05 Ur Barbiturates Screen Presumptive negative 02/05/18 19:57 Ur Phencyclidine Scrn Presumptive negative 02/05/18 19:57 Ur Amphetamines Screen Presumptive negative 02/05/18 19:57 U Benzodiazepines Scrn Presumptive negative 02/05/18 19:57 Urine Cocaine Screen Presumptive negative 02/05/18 19:57 U Marijuana (THC) Screen Presumptive negative 02/05/18 19:57 Drugs of Abuse Note Disclamer 02/05/18 19:57 Plasma/Serum Alcohol 0.20 % (0-0.07) H 02/05/18 18:05 Hepatitis A IgM Ab Non-reactive (NonReactive) 02/07/18 05:05 Hep Bs Antigen Non-reactive (Negative) 02/07/18 05:05 Hep B Core IgM Ab Non-reactive (NonReactive) 02/07/18 05:05 Hepatitis C Antibody Reactive (NonReactive) A 02/07/18 05:05
--- NOTE | 2018-02-08 15:17 | Discharge Summary ---
Providers - Providers Date of Admission: 02/05/18 23:32 Date of discharge: 02/08/18 Attending physician: ADY AGUILLON 02/06/18 05:25 Consult to Physician [CONS] Routine Comment: Consulting Provider: BRIDGER MILLER Physician Instructions: Reason For Exam: liver lesions, h/o polyp that were cancerous Primary care physician: ACCOUNTS RECEIVABLE ASSISTANT Hospitalization Reason for admission: abdominal pain Condition: Stable Pertinent studies: CT abdomen; for cycle hepatic subcentimeter lesions Previous right colon resection with anastomosis free fluid in the bony pelvis MRI abdomen/MRCP; probable mild acute pancreatitis. At this and duodenal prominence could represent associated duodenitis No bleeding as patient filling defect structures seen Centimeter liver lesions are not characterized without IV contrast Hospital course: 57-year-old female patient with significant history of hypertension status post removal of colonic polyps and chronic alcohol use was admitted through emergency room with abdominal pain Patient was initially evaluated and noted to have acute pancreatitis Symptomatically managed, CT abdomen and pelvis revealed liver lesions suspicious for metastatic lesions. GI has evaluated the patient, patient underwent MRI/MRCP, which was negative for any acute abnormality, no metastatic lesions GI evaluated the patient, cleared for discharge Lipase levels gradually decreased and today his normal level The patient is comfortable no new complaints Vital signs stable [id number] evaluation physical examination pattern discharge is unremarkable Patient was closely monitored for any alcohol withdrawal symptoms And placed on CIWA protocol Today she has no agitation tremulousness or any evidence of withdrawal symptoms Patient is stable at discharge Counseling done patient strongly advised to quit tobacco and alcohol use Verbalized understanding Discharge diagnosis; --Acute alcoholic pancreatitis, resolved --History of chronic alcoholism --Possible alcohol withdrawal symptoms --Liver lesions suspicious for metastasis; MRI negative --Hypertension --History of malignant polyps Disposition: DC-01 TO HOME OR SELFCARE Time spent for discharge: 32 min Core Measure Documentation - Palliative Care Palliative Care/ Comfort Measures: Not Applicable - Core Measures Any of the following diagnoses?: none Exam - Constitutional Vitals: Temp Pulse Resp BP Pulse Ox 98.6 F 80 16 144/97 95 02/08/18 11:39 02/08/18 11:39 02/08/18 11:44 02/08/18 11:39 02/08/18 11:39 General appearance: Present: no acute distress, well-nourished, obese - EENT Eyes: Present: PERRL, EOM intact - Neck Neck: Present: supple, normal ROM - Respiratory Respiratory effort: normal Respiratory: bilateral: diminished, negative: rales, rhonchi, wheezing - Cardiovascular Rhythm: regular Heart Sounds: Present: S1 & S2 - Extremities Extremities: no ischemia, No edema - Abdominal General gastrointestinal: Present: soft, non-tender, non-distended, normal bowel sounds - Integumentary Integumentary: Present: clear, warm - Musculoskeletal Musculoskeletal: strength equal bilaterally - Psychiatric Psychiatric: appropriate mood/affect, cooperative - Neurologic Neurologic: CNII-XII intact, moves all extremities Plan Activity: advance as tolerated, fall precautions Diet: regular Special Instructions: smoking cessation Additional Instructions: Walking cessation counseling done. Strongly advised to quit alcohol intake. Patient advised to go for drug rehabilitation. Strongly advised not to drive or operate heavy machinery while under the influence of alcohol. Patient verbalized understanding Follow up with: PRIMARY CARE, [Primary Care Provider] - 3-5 Days DIANA PRINCE MD [Staff Physician] - 7 Days Prescriptions: Famotidine [Pepcid] 20 mg PO BID #60 tablet Folic Acid 1 tab PO QDAY #30 tab Thiamine [Vitamin B-1] 100 mg PO QDAY #30 tablet
[2018-02-08 16:47] VITALS: BP 132/91
== END 2018-02-08 18:00 | disposition home or self-care (01) | DRG 439 ==
LOC: ED 16:16 → 4A 23:32
PROVIDERS: ADMIT Internal Medicine; ATTEND Internal Medicine
DX: K85.20 Alcohol induced acute pancreatitis without necrosis or infection (principal); F10.231 Alcohol dependence with withdrawal delirium; I10 Essential (primary) hypertension; K76.9 Liver disease, unspecified; F41.9 Anxiety disorder, unspecified; F17.210 Nicotine dependence, cigarettes, uncomplicated; Z90.710 Acquired absence of both cervix and uterus; Z98.51 Tubal ligation status; Z82.49 Family history of ischemic heart disease and other diseases of the circulatory system; Z85.038 Personal history of other malignant neoplasm of large intestine
CPT/HCPCS: 36415; 74177; 74181; 80048; 80053; 80061; 80074; 80307; 80320; 81001; 82106; 83690; 83735; 84100; 85025; 85610; 93005; 93010; 94760; 96374; 99285; G0480; J1650; J1956; J2060; J2270; J2405; J3010; J7030; Q9967

== ENCOUNTER 2018-03-22 08:25 | Emergency (ER) | payer OTHER ==
[2018-03-22] MEDS ORDERED: TORADOL IV ONE (09:19)
[2018-03-22 10:00] LABS: Basophils % (Auto) 0.2 % (0.0-1.8); Eosinophils % (Auto) 0.2 % (0.0-4.3); Hematocrit 41.5 % (30.3-42.9); Hemoglobin 13.7 gm/dl (10.1-14.3); Lymphocytes # (Auto) 1.3 K/mm3 (1.2-5.4); Lymphocytes % (Auto) 24.2 % (13.4-35.0); Mean Corpuscular HGB Conc 33 % (30-34); Mean Corpuscular Hemoglobin 29 pg (28-32); Mean Corpuscular Volume 88 fl (79-97); Monocytes # (Auto) 0.3 K/mm3 (0.0-0.8); Platelet Count 178 K/mm3 (140-440); Red Blood Count 4.71 M/mm3 (3.65-5.03); Red Cell Distribution Width 15.7 % (13.2-15.2)
[2018-03-22 10:13] LABS: INR 0.97 (0.87-1.13)
[2018-03-22 10:14] LABS: Partial Thromboplastin Time 28.6 Sec. (24.2-36.6)
--- NOTE | 2018-03-22 10:18 | Cat Scan Report ---
CT HEAD WITHOUT CONTRAST: HISTORY: Altered mental status. TECHNIQUE: Sequential 2.5mm CT images. COMPARISON: none. FINDINGS: Cerebral Parenchyma: Within normal limits. Cerebellum: Within normal limits. Brainstem: Within normal limits. Ventricles: Normal. Sella: Normal. Extra-axial spaces: Normal. Basal Cisterns: Normal. Intracranial Hemorrhage: None. Midline Shift: None. Calvarium: Normal. Sinuses: Normal. Mastoid Air Cells: Normal. Visualized Orbits: Normal. IMPRESSION: Cranial CT scan within normal limits.
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
[2018-03-22 10:24] LABS: Alanine Aminotransferase 67 units/L (7-56); Albumin 4.1 g/dL (3.9-5); BUN/Creatinine Ratio 8; Blood Urea Nitrogen 7 mg/dL (7-17); Calcium 10.1 mg/dL (8.4-10.2); Hemolysis Index 7
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
--- NOTE | 2018-03-22 10:32 | XRay Report ---
RIGHT SHOULDER, 2 VIEWS: HISTORY: right shoulder pain. A complex, comminuted fracture is identified at the right humeral neck. Displacement of fracture fragments measure up to 1-2 cm. There also appears to be anterior, inferior dislocation at the right glenohumeral joint. The clavicle, scapula and visualized right ribs are within normal limits. IMPRESSION: Complex fracture dislocation at the right shoulder. Consultation with orthopedics is recommended.
[2018-03-22] MEDS ORDERED: NACL 0.9% 1000 ML IV ONE (10:43)
[2018-03-22] MEDS ORDERED: MAGNESIUM SULFATE 2GM/50ML 2 GM/50 ML BAG IV ONE ×2 (10:44→11:34)
[2018-03-22] MEDS ORDERED: DILAUDID IV ONE ×2 (11:02→11:03)
[2018-03-22] MEDS ORDERED: NORMODYNE IV ONE ×2 (11:03→11:32)
[2018-03-22 11:06] LABS: Bacteria,Urine 1+ /HPF (Negative); Bilirubin,Urine NEG (Negative); Blood,Urine NEG (Negative); Color,Urine Yellow (Yellow); Hyaline Casts,Urine 13 /LPF; Mucus,Urine FEW /HPF; Urobilinogen,Urine < 2.0 mg/dL (<2.0)
[2018-03-22 11:11] LABS: Amphetamine Screen,Urine PRESUMPTIVE NEGATIVE; Benzodiazepines Screen,Urine PRESUMPTIVE NEGATIVE; Cannabinoid Screen,Urine PRESUMPTIVE NEGATIVE; Cocaine Screen,Urine PRESUMPTIVE NEGATIVE; Methadone Screen,Urine PRESUMPTIVE NEGATIVE; Opiate Screen,Urine PRESUMPTIVE NEGATIVE
[2018-03-22] MEDS ORDERED: DILAUDID ONE (11:15)
[2018-03-22] MEDS ORDERED: NACL 0.9% 1000 ML 1,000 ML ONE (11:31)
[2018-03-22] MEDS ORDERED: ROCEPHIN/NS 1 GM/50 ML 1 GM/50 ML BAG IV ONE (12:30)
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
[2018-03-22] MEDS: KCL 10MEQ/100ML 10 MEQ/100 ML BAG IV SCH ×2 (12:50→16:02)
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
[2018-03-22 19:02] VITALS: BP 135/90
== END 2018-03-22 19:17 | disposition other institution (70) ==
LOC: ED 08:25
DX: S42.91XA Fracture of right shoulder girdle, part unspecified, initial encounter for closed fracture (principal); R41.82 Altered mental status, unspecified; E83.42 Hypomagnesemia; E87.6 Hypokalemia; N39.0 Urinary tract infection, site not specified; E87.1 Hypo-osmolality and hyponatremia; R74.0 Nonspecific elevation of levels of transaminase and lactic acid dehydrogenase [LDH]; R73.09 Other abnormal glucose; I11.0 Hypertensive heart disease with heart failure; I50.9 Heart failure, unspecified; V87.7XXA Person injured in collision between other specified motor vehicles (traffic), initial encounter; F17.200 Nicotine dependence, unspecified, uncomplicated; Z90.710 Acquired absence of both cervix and uterus; Z98.51 Tubal ligation status; Y93.89 Activity, other specified; Y92.89 Other specified places as the place of occurrence of the external cause; Y99.8 Other external cause status
CPT/HCPCS: 29105; 36415; 70450; 71046; 72125; 73030; 74177; 80053; 80307; 81001; 82140; 82550; 82805; 82962; 83690; 83735; 84443; 84484; 85025; 85610; 85730; 87040; 87086; 93005; 93010; 96361; 96365; 96367; 96375; 99285; G0480; J0696; J1170; J1885; J3475; J3480; J7030; Q9967; 80320

== ENCOUNTER 2019-03-11 14:39 | Emergency (ER) | payer BC, OTHER ==
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
[2019-03-11] MEDS ORDERED: ATIVAN IM PRN (15:15)
[2019-03-11] MEDS ORDERED: HALDOL IM PRN (15:15)
--- NOTE | 2019-03-11 15:19 | Cat Scan Report ---
CT HEAD WITHOUT CONTRAST: HISTORY: Stroke symptoms. TECHNIQUE: Sequential 2.5mm CT images. COMPARISON: 03/22/18. FINDINGS: Cerebral Parenchyma: Within normal limits. Cerebellum: Within normal limits. Brainstem: Within normal limits. Ventricles: Normal. Sella: Normal. Extra-axial spaces: Normal. Basal Cisterns: Normal. Intracranial Hemorrhage: None. Midline Shift: None. Calvarium: Normal. Sinuses: Normal. Mastoid Air Cells: Normal. Visualized Orbits: Normal. IMPRESSION: Cranial CT scan within normal limits. These findings were discussed with Dr. Atwood in the ER at 1513 hrs.
--- NOTE | 2019-03-11 15:21 | Cat Scan Report ---
CT SCAN OF THE CERVICAL SPINE: HISTORY: Altered mental status. TECHNIQUE: Contiguous 1.25 mm axial images of the cervical spine were obtained. Sagittal and coronal reformatted images. FINDINGS: There is normal alignment of the cervical spine. The body, pedicles and posterior ligaments are intact. No evidence of fracture or subluxation is seen. Nwhg-by-jrbjwwea degenerative disc disease is identified at C3-4 and C6-7. The spinal canal appears normal. The prevertebral soft tissues appear normal. IMPRESSION: Cervical spondylosis. No acute process is noted.
[2019-03-11 15:47] LABS: Hematocrit 36.9 % (30.3-42.9); Hemoglobin 12.2 gm/dl (10.1-14.3); Mean Corpuscular HGB Conc 33 % (30-34); Mean Corpuscular Volume 83 fl (79-97); Platelet Count 191 K/mm3 (140-440); Red Blood Count 4.45 M/mm3 (3.65-5.03); Red Cell Distribution Width 15.5 % (13.2-15.2)
[2019-03-11 15:57] LABS: INR 1.14 (0.87-1.13)
[2019-03-11 15:58] LABS: Partial Thromboplastin Time 21.7 Sec. (24.2-36.6); Thrombin Time 16.9 Sec. (15.1-19.6)
[2019-03-11 16:02] LABS: Alanine Aminotransferase 26 units/L (7-56); Albumin 3.8 g/dL (3.9-5); BUN/Creatinine Ratio 8; Blood Urea Nitrogen 5 mg/dL (7-17); Calcium 9.5 mg/dL (8.4-10.2); Hemolysis Index 14
[2019-03-11 16:05] LABS: Creatine Kinase MB < 1.0 ng/mL (0.0-4.0)
--- NOTE | 2019-03-11 16:05 | Emergency Department Report ---
ED Neuro Deficit HPI - General Chief Complaint: Altered Mental Status Stated Complaint: DELIRIOUS Time Seen by Provider: 03/11/19 14:58 Source: EMS Limitations: Altered Mental Status - History of Present Illness Initial Comments: [facility] TeleStroke Metrics: LKW: Unknown Door Time: 1439 [facility] Contacted: 1500 [facility] at Bedside: 1508 NIHSS: 1516 Decision on Alteplase: Not to give as her last known well time is not known and her presentation is not classic for an acute ischemic stroke. Interventional Candidate: Not a candidate as her symptoms are not consistent with a large vessel proximal occlusion. Chief Complaint: Unresponsive, agitation, and visual changes HPI: Asked to see this patient in telemedicine consultation. Consultation was performed with assistance of ancillary / medical staff at bedside. Verbal consent to perform the examination with telemedicine was obtained. Patient agreed to proceed with the consultation. 58-year-old female who was brought to the emergency room for severe agitation and unresponsiveness. There is currently no family at bedside. History was obtained through discussions with EMS. Patient apparently was found sitting in her truck at a school parking lot. EMS was called out for the patient being unresponsive and evidence of vomiting. When they arrived, the daughter was there. EMS noted that the family were very poor historians and could not establish a last known well time for the patient. EMS smelled alcohol, but the family had denied any alcohol abuse. Family was unable to provide any medical history or provide if she is on any medications. EMS reported that she was found unresponsive in her car. As they were trying to move her, she would sometimes speak but incoherently. At one point, she states she could not see out of both her eyes. They noted mostly diffuse weakness. As they put her on the stretcher, the patient suddenly woke up and sat up and started kicking and hitting with her arms and legs without any motor focality. They initially gave her 2 mg of Narcan without any response. She was noted to have severe tachycardia with a pulse of 140, a blood glucose of 91, and was O2 satting at 97%. After they obtained an IV, they gave the patient 50 mg of IV Benadryl, 5 mg of IV Versed, and 5 mg of IV Haldol as part of their acute delirium protocol. The patient did become sedated, and her respiratory rate and oxygen saturations had dropped. They attempted to place an oral airway, but the patient purposefully removed the oral airway. They then placed her on a nonrebreather mask, and she was satting fine. In the emergency room, the patient would withdraw from pain in all her extremities. She would just fall back to sleep. She was able to tell me her name and date of , but she would quickly fall back to sleep. Patient was diffusely weak and would not answer any other questions. PMH: Unknown SOC: Unknown FMH: Unknown ROS: Unobtainable at this time due to her altered mental status. VS: Nothing charted at this time. Exam: Patient is in no apparent distress. Patient appears as stated age. No obvious acute respiratory or cardiac distress. Patient is well groomed and well-nourished. 1a- LOC: Not keenly responsive - 2 1b- LOC questions: Answers both questions correctly - 0 1c- LOC commands- Performs neither tasks correctly- 2 2- Gaze: Normal; no gaze paresis or gaze deviation - 0 3- Visual Hugo: normal, no Visual field deficit - 0 4- Facial movements: no facial palsy - 0 5- Upper limb motor bilateral arm drifts - 6 6- Lower limb motor bilateral leg drifts - 6 7- Limb Coordination: absent ataxia - 0 8- Sensory: no sensory loss - 0 9- Language - Mild aphasia - 1 10- Speech - Moderate dysarthria - 1 11- Neglect / Extinction - none found - 0 NIHSS score: 18 Diagnostic Data: CT of the head showed no acute intracranial process Medical Data Reviewed: 1.Data?reviewed include clinical labs, radiology,?and medical tests; 2.Tests?results discussed w/performing or interpreting physician; 3.Obtaining/reviewing old medical records; 4.Obtaining?case history from another source; 5.Independent?review of image, tracing, or specimen. Medical Decision Making: - Extensive number of diagnosis or management options are considered below. - Extensive amount of complex data reviewed. - High risk of complication and/or morbidity or mortality are associated with differential diagnostic considerations below. - There may be?uncertain?outcome and increased probability of prolonged functional impairment or high probability of severe prolonged functional impairment associated with some of these differential diagnosis. Assessment: 1. Acute toxic metabolic encephalopathy 2. Possible alcohol abuse Recommendations: Patient can be admitted to the hospital for further evaluation of her symptoms. Metabolic and infectious work-up per primary team. Check urine drug screen. Consult local neurology team to assist with evaluation and management. Can consider brain MRI if the patient does not improve in terms of her mentat ion. Continue supportive care. Thank you for allowing [facility] to participate in the care of your patient. Please call me, Dr. Akhtar, with any questions at [phone]. Case discussed with the ER staff and ER attending. Critical Care notation: I was called to see this critical patient emergently. I personally evaluated this critical patient for acute stroke evaluation, and determining their eligibility for IV Alteplase and interventional therapies. I have spent approxi mately 10 minutes with the patient, including time at bedside, time discussing the case with other physicians, reviewing plan of care, and time independently reviewing the records and scans. - Related Data Home Medications: Home Medications Medication Instructions Recorded Confirmed Last Taken Hydrochlorothiazide 25 mg PO DAILY 09/04/13 02/05/18 09/04/13 05:00 PARoxetine [Paxil] 20 mg PO DAILY 05/14/17 02/05/18 Unknown Previous Rx's Medication Instructions Recorded Last Taken Type Valsartan [Diovan] 160 mg PO QDAY #30 tablet 05/15/17 Unknown Rx Famotidine [Pepcid] 20 mg PO BID #60 tablet 02/08/18 Unknown Rx Folic Acid 1 tab PO QDAY #30 tab 02/08/18 Unknown Rx Thiamine [Vitamin B-1] 100 mg PO QDAY #30 tablet 02/08/18 Unknown Rx Allergies/Adverse Reactions: Allergies Allergy/AdvReac Type Severity Reaction Status Date / Time No Known Allergies Allergy Verified 09/04/13 07:16 ED Review of Systems ROS: Stated complaint: DELIRIOUS Other details as noted in HPI ED Past Medical Hx - Past Medical History Hx Hypertension: Yes Hx Congestive Heart Failure: Yes Hx Seizures: Yes (1x during child ) Hx Psychiatric Treatment: Yes (ANXIETY, ETOH ABUSE) - Surgical History Additional Surgical History: Hysterectomy. COLON POLYPS, TUBALIGATION - Social History Smoking Status: Current Every Day Smoker Substance Use Type: Alcohol - Medications Home Medications: Home Medications Medication Instructions Recorded Confirmed Last Taken Type Hydrochlorothiazide 25 mg PO DAILY 09/04/13 02/05/18 09/04/13 05:00 History PARoxetine [Paxil] 20 mg PO DAILY 05/14/17 02/05/18 Unknown History Valsartan [Diovan] 160 mg PO QDAY #30 tablet 05/15/17 02/05/18 Unknown Rx Famotidine [Pepcid] 20 mg PO BID #60 tablet 02/08/18 Unknown Rx Folic Acid 1 tab PO QDAY #30 tab 02/08/18 Unknown Rx Thiamine [Vitamin B-1] 100 mg PO QDAY #30 tablet 02/08/18 Unknown Rx ED Neuro Physical Exam - General Suspected Stroke: No - Lab Data Result diagrams: 03/11/19 15:26 03/11/19 15:26 Lab Results 03/11/19 03/11/19 03/11/19 Range/Units 15:26 15:26 15:26 WBC 3.9 L (4.5-11.0) K/mm3 RBC 4.45 (3.65-5.03) M/mm3 Hgb 12.2 (10.1-14.3) gm/dl Hct 36.9 (30.3-42.9) % MCV 83 (79-97) fl MCH 27 L (28-32) pg MCHC 33 (30-34) % RDW 15.5 H (13.2-15.2) % Plt Count 191 (140-440) K/mm3 Lymph % (Auto) [employer] Seg Neutrophils % [employer] PT 14.3 (12.2-14.9) Sec. INR 1.14 H (0.87-1.13) APTT 21.7 L (24.2-36.6) Sec. Thrombin Time 16.9 (15.1-19.6) Sec. VBG pH (7.320-7.420) Carboxyhemoglobin Troponin T < 0.010 (0.00-0.029) ng/mL 03/11/19 03/11/19 Range/Units 15:26 15:26 WBC (4.5-11.0) K/mm3 RBC (3.65-5.03) M/mm3 Hgb (10.1-14.3) gm/dl Hct (30.3-42.9) % MCV (79-97) fl MCH (28-32) pg MCHC (30-34) % RDW (13.2-15.2) % Plt Count (140-440) K/mm3 Lymph % (Auto) Seg Neutrophils % PT (12.2-14.9) Sec. INR (0.87-1.13) APTT (24.2-36.6) Sec. Thrombin Time (15.1-19.6) Sec. VBG pH 7.413 (7.320-7.420) Carboxyhemoglobin 5.2 Troponin T (0.00-0.029) ng/mL Critical care attestation.: If time is entered above; I have spent that time in minutes in the direct care of this critically ill patient, excluding procedure time. ED Disposition Clinical Impression: Toxic metabolic encephalopathy [facility] IP Is pt being admited?: Yes Condition: Stable
--- NOTE | 2019-03-11 16:39 | XRay Report ---
PROCEDURE: XR CHEST 1V AP TECHNIQUE: Frontal chest radiograph. HISTORY: ams COMPARISONS: 03/22/2018. FINDINGS: The cardiomediastinal silhouette is normal. Streaky and patchy bibasilar opacities are seen. No pleural effusion. No pneumothorax. No acute osseous abnormality. IMPRESSION: Bibasilar atelectasis versus pneumonia. This document is electronically signed by Rebecca Pino., March 11 2019 04:38:19 PM ET
[2019-03-11] MEDS ORDERED: LEVAQUIN 750MG/150ML 750 MG/150 ML BAG IV ONE (16:52)
[2019-03-11] MEDS ORDERED: NACL 0.9% 1000 ML 2,000 ML IV ONE (16:52)
[2019-03-11] MEDS ORDERED: VITAMIN B-1 100 MG, FOLVITE 1 MG, INFUVITE 10 ML in NACL 0.9% 1000 ML 1,000 ML IV ONE (17:55)
[2019-03-11] MEDS ORDERED: NACL 0.45% 500 ML IV SCH (18:00)
[2019-03-11] MEDS: KCL 10MEQ/100ML 10 MEQ/100 ML BAG IV SCH ×3 (18:45→22:00)
[2019-03-11] MEDS ORDERED: NACL 0.9% 500 ML 500 ML ONE (18:55)
[2019-03-11 18:57] LABS: Bilirubin,Urine NEG (Negative); Blood,Urine NEG (Negative); Color,Urine Straw (Yellow); Mucus,Urine FEW /HPF; Protein,Urine <15 mg/dL mg/dL (Negative); RBC,Urine < 1.0 /HPF (0.0-6.0); Urobilinogen,Urine < 2.0 mg/dL (<2.0); WBC,Urine < 1.0 /HPF (0.0-6.0)
[2019-03-11 19:02] LABS: Amphetamine Screen,Urine PRESUMPTIVE NEGATIVE; Cannabinoid Screen,Urine PRESUMPTIVE NEGATIVE; Cocaine Screen,Urine PRESUMPTIVE NEGATIVE; Methadone Screen,Urine PRESUMPTIVE NEGATIVE; Opiate Screen,Urine PRESUMPTIVE NEGATIVE
[2019-03-11 19:20] LABS: Benzodiazepines Screen,Urine PRESUMPTIVE POSITIVE
[2019-03-12 00:07] LABS: RBC Morphology Normal; Total Cells Counted 100
[2019-03-12] MEDS ORDERED: KCL 10MEQ/100ML 10 MEQ/100 ML BAG IV ONE (00:10)
[2019-03-12] MEDS: KCL 10MEQ/100ML 10 MEQ/100 ML BAG IV SCH (00:14)
--- NOTE | 2019-03-12 11:48 | Event Note ---
Date: 03/12/19 The patient is seen and reevaluated by myself today. Today, she is pleasant, calm, clinically sober, not homicidal or suicidal. She does not have any recollection of yesterday's events. She denies physical pain. She denies homicidality and suicidality. She denies intentional overdose. She makes no complaint of symptoms suggestive of pneumonia. She has follow-up within a week with her outpatient therapy group. At this point time, clinically doubt pneumonia. At this point in time, the patient is not clinically encephalopathic. The patient has a GCS of 15. The patient has an NIH score of 0. At this point in time, her physical exam is unremarkable, her vital signs are unremarkable, and she does not meet criteria at this time for hospitalization. Furthermore, she is not require a 1013, the patient has been seen in conjunction with the psychiatric team, who agreed to have the patient's 1013 discontinued. The patient reported that she is interested in alcohol detox. She can follow-up as an outpatient for this. Patient will be discharge now. Vital Signs 03/11/19 03/11/19 03/11/19 15:00 15:17 15:30 Temperature 97.7 F Pulse Rate 84 101 H 94 H Respiratory 16 21 27 H Rate Blood Pressure 110/75 Blood Pressure 116/70 [Left] O2 Sat by Pulse 97 95 88 Oximetry 03/11/19 03/11/19 03/11/19 15:45 16:00 16:15 Temperature Pulse Rate 92 H 90 83 Respiratory 18 18 18 Rate Blood Pressure 109/80 116/70 124/81 Blood Pressure [Left] O2 Sat by Pulse 94 87 93 Oximetry 03/11/19 03/11/19 03/11/19 16:30 16:45 17:00 Temperature Pulse Rate 87 87 86 Respiratory 18 16 16 Rate Blood Pressure 108/77 111/71 113/77 Blood Pressure [Left] O2 Sat by Pulse 90 90 89 Oximetry 03/11/19 03/11/19 03/11/19 17:15 17:30 17:45 Temperature Pulse Rate 82 Respiratory 16 16 18 Rate Blood Pressure 113/77 121/88 130/85 Blood Pressure [Left] O2 Sat by Pulse 96 93 94 Oximetry 03/11/19 03/11/19 03/11/19 18:00 18:15 18:30 Temperature Pulse Rate Respiratory 11 L 16 17 Rate Blood Pressure 146/78 143/84 137/85 Blood Pressure [Left] O2 Sat by Pulse 99 93 94 Oximetry 03/11/19 03/11/19 03/11/19 18:45 19:00 19:15 Temperature Pulse Rate Respiratory 17 16 19 Rate Blood Pressure 132/87 146/95 146/95 Blood Pressure [Left] O2 Sat by Pulse 96 97 95 Oximetry 03/11/19 03/11/19 03/11/19 19:30 19:45 20:01 Temperature Pulse Rate Respiratory 22 12 16 Rate Blood Pressure 149/101 140/90 143/90 Blood Pressure [Left] O2 Sat by Pulse 98 98 94 Oximetry 03/11/19 03/11/19 03/11/19 20:15 20:30 20:45 Temperature Pulse Rate Respiratory 16 18 16 Rate Blood Pressure 149/96 149/94 150/98 Blood Pressure [Left] O2 Sat by Pulse 95 98 98 Oximetry 03/11/19 03/11/19 03/11/19 20:48 21:00 21:15 Temperature Pulse Rate 100 H 98 H Respiratory 17 17 Rate Blood Pressure 169/103 169/103 Blood Pressure [Left] O2 Sat by Pulse 95 Oximetry 03/11/19 03/11/19 03/11/19 21:30 21:45 22:00 Temperature 98.5 F Pulse Rate 99 H Respiratory 16 17 13 Rate Blood Pressure 146/93 144/97 143/95 Blood Pressure [Left] O2 Sat by Pulse 96 Oximetry 03/11/19 03/11/19 03/11/19 22:31 23:00 23:01 Temperature Pulse Rate 100 H Respiratory 18 19 Rate Blood Pressure 159/95 172/100 Blood Pressure [Left] O2 Sat by Pulse 95 99 Oximetry 03/11/19 03/11/19 03/12/19 23:30 23:49 00:00 Temperature Pulse Rate 103 H Respiratory 16 19 Rate Blood Pressure 161/104 178/99 Blood Pressure [Left] O2 Sat by Pulse 96 98 Oximetry 03/12/19 03/12/19 03/12/19 00:01 00:13 00:30 Temperature Pulse Rate Respiratory 16 11 L 16 Rate Blood Pressure 180/92 180/92 163/98 Blood Pressure [Left] O2 Sat by Pulse 97 97 98 Oximetry 03/12/19 03/12/19 03/12/19 01:00 01:30 02:00 Temperature Pulse Rate 96 H 99 H Respiratory 20 15 12 Rate Blood Pressure 170/102 179/89 168/96 Blood Pressure [Left] O2 Sat by Pulse 95 96 98 Oximetry 03/12/19 03/12/19 03/12/19 02:30 03:00 03:31 Temperature Pulse Rate Respiratory 18 18 15 Rate Blood Pressure 172/94 174/111 140/73 Blood Pressure [Left] O2 Sat by Pulse 97 95 92 Oximetry 03/12/19 03/12/19 03/12/19 04:00 04:31 05:00 Temperature 98.6 F 98.6 F Pulse Rate 103 H 107 H Respiratory 16 15 14 Rate Blood Pressure 126/84 135/94 144/102 Blood Pressure [Left] O2 Sat by Pulse 96 95 Oximetry 03/12/19 03/12/19 03/12/19 05:30 06:13 06:30 Temperature Pulse Rate 164 H 90 Respiratory 18 16 Rate Blood Pressure 154/102 145/105 150/103 Blood Pressure [Left] O2 Sat by Pulse 95 Oximetry 03/12/19 03/12/19 07:00 09:39 Temperature Pulse Rate 84 88 Respiratory 22 18 Rate Blood Pressure 134/92 Blood Pressure 143/99 [Left] O2 Sat by Pulse 96 100 Oximetry Lab Results 03/11/19 03/11/19 03/11/19 Range/Units 15:26 15:26 15:26 WBC 3.9 L (4.5-11.0) K/mm3 RBC 4.45 (3.65-5.03) M/mm3 Hgb 12.2 (10.1-14.3) gm/dl Hct 36.9 (30.3-42.9) % MCV 83 (79-97) fl MCH 27 L (28-32) pg MCHC 33 (30-34) % RDW 15.5 H (13.2-15.2) % Plt Count 191 (140-440) K/mm3 Lymph % (Auto) Performance Improvement Director Add Manual Diff Complete Total Counted 100 Seg Neutrophils % Performance Improvement Director Seg Neuts % (Manual) 36.0 L (40.0-70.0) % Band Neutrophils % 0 % Lymphocytes % (Manual) 55.0 H (13.4-35.0) % Reactive Lymphs % (Man) 0 % Monocytes % (Manual) 6.0 (0.0-7.3) % Eosinophils % (Manual) 2.0 (0.0-4.3) % Basophils % (Manual) 1.0 (0.0-1.8) % Metamyelocytes % 0 % Myelocytes % 0 % Promyelocytes % 0 % Blast Cells % 0 % Nucleated RBC % Not Reportable Seg Neutrophils # Man 1.4 L (1.8-7.7) K/mm3 Band Neutrophils # 0.0 K/mm3 Lymphocytes # (Manual) 2.1 (1.2-5.4) K/mm3 Abs React Lymphs (Man) 0.0 K/mm3 Monocytes # (Manual) 0.2 (0.0-0.8) K/mm3 Eosinophils # (Manual) 0.1 (0.0-0.4) K/mm3 Basophils # (Manual) 0.0 (0.0-0.1) K/mm3 Metamyelocytes # 0.0 K/mm3 Myelocytes # 0.0 K/mm3 Promyelocytes # 0.0 K/mm3 Blast Cells # 0.0 K/mm3 WBC Morphology Not Reportable Hypersegmented Neuts Not Reportable Hyposegmented Neuts Not Reportable Hypogranular Neuts Not Reportable Smudge Cells Not Reportable Toxic Granulation Not Reportable Toxic Vacuolation Not Reportable Dohle Bodies Not Reportable Pelger-Huet Anomaly Not Reportable Juan Carlos Rods Not Reportable Platelet Estimate Not Reportable Clumped Platelets Not Reportable Plt Clumps, EDTA Not Reportable Large Platelets Not Reportable Giant Platelets Not Reportable Platelet Satelliting Not Reportable Plt Morphology Comment Not Reportable RBC Morphology Normal Dimorphic RBCs Not Reportable Polychromasia Not Reportable Hypochromasia Not Reportable Poikilocytosis Not Reportable Anisocytosis Not Reportable Microcytosis Not Reportable Macrocytosis Not Reportable Spherocytes Not Reportable Pappenheimer Bodies Not Reportable Sickle Cells Not Reportable Target Cells Not Reportable Tear Drop Cells Not Reportable Ovalocytes Not Reportable Helmet Cells Not Reportable Constantino-Maiden Bodies Not Reportable Coleman Rings Not Reportable [place] Cells Not Reportable Bite Cells Not Reportable Crenated Cell Not Reportable Elliptocytes Not Reportable Acanthocytes (Spur) Not Reportable Rouleaux Not Reportable Hemoglobin C Crystals Not Reportable Schistocytes Not Reportable Malaria parasites Not Reportable Thong Bodies Not Reportable Hem Pathologist Commnt No PT 14.3 (12.2-14.9) Sec. INR 1.14 H (0.87-1.13) APTT 21.7 L (24.2-36.6) Sec. Thrombin Time 16.9 (15.1-19.6) Sec. VBG pH (7.320-7.420) Carboxyhemoglobin Sodium 147 H (137-145) mmol/L Potassium 3.2 L (3.6-5.0) mmol/L Chloride 108.2 H (98-107) mmol/L Carbon Dioxide 25 (22-30) mmol/L Anion Gap 17 mmol/L BUN 5 L (7-17) mg/dL Creatinine 0.6 L (0.7-1.2) mg/dL Estimated GFR > 60 ml/min BUN/Creatinine Ratio 8 % Glucose 92 (65-100) mg/dL Lactic Acid (0.7-2.0) mmol/L Calcium 9.5 (8.4-10.2) mg/dL Magnesium 2.10 (1.7-2.3) mg/dL Total Bilirubin 0.20 (0.1-1.2) mg/dL AST 28 (5-40) units/L ALT 26 (7-56) units/L Alkaline Phosphatase 76 (35-129) units/L Total Creatine Kinase 103 (30-135) units/L CK-MB (CK-2) < 1.0 (0.0-4.0) ng/mL CK-MB (CK-2) Rel Index 0.9 (0-4) Troponin T < 0.010 (0.00-0.029) ng/mL Total Protein 7.3 (6.3-8.2) g/dL Albumin 3.8 L (3.9-5) g/dL Albumin/Globulin Ratio 1.1 % Urine Color (Yellow) Urine Turbidity (Clear) Urine pH (5.0-7.0) Ur Specific [place] (1.003-1.030) Urine Protein (Negative) mg/dL Urine Glucose (UA) (Negative) mg/dL Urine Ketones (Negative) mg/dL Urine Blood (Negative) Urine Nitrite (Negative) Urine Bilirubin (Negative) Urine Urobilinogen (<2.0) mg/dL Ur Leukocyte Esterase (Negative) Urine WBC (Auto) (0.0-6.0) /HPF Urine RBC (Auto) (0.0-6.0) /HPF U Epithel Cells (Auto) (0-13.0) /HPF Urine Mucus /HPF Salicylates (2.8-20.0) mg/dL Urine Opiates Screen Urine Methadone Screen Acetaminophen (10.0-30.0) ug/mL Ur Barbiturates Screen Ur Phencyclidine Scrn Ur Amphetamines Screen U Benzodiazepines Scrn Urine Cocaine Screen U Marijuana (THC) Screen Drugs of Abuse Note Plasma/Serum Alcohol (0-0.07) % 03/11/19 03/11/19 03/11/19 Range/Units 15:26 15:26 15:26 WBC (4.5-11.0) K/mm3 RBC (3.65-5.03) M/mm3 Hgb (10.1-14.3) gm/dl Hct (30.3-42.9) % MCV (79-97) fl MCH (28-32) pg MCHC (30-34) % RDW (13.2-15.2) % Plt Count (140-440) K/mm3 Lymph % (Auto) Add Manual Diff Total Counted Seg Neutrophils % Seg Neuts % (Manual) (40.0-70.0) % Band Neutrophils % % Lymphocytes % (Manual) (13.4-35.0) % Reactive Lymphs % (Man) % Monocytes % (Manual) (0.0-7.3) % Eosinophils % (Manual) (0.0-4.3) % Basophils % (Manual) (0.0-1.8) % Metamyelocytes % % Myelocytes % % Promyelocytes % % Blast Cells % % Nucleated RBC % Seg Neutrophils # Man (1.8-7.7) K/mm3 Band Neutrophils # K/mm3 Lymphocytes # (Manual) (1.2-5.4) K/mm3 Abs React Lymphs (Man) K/mm3 Monocytes # (Manual) (0.0-0.8) K/mm3 Eosinophils # (Manual) (0.0-0.4) K/mm3 Basophils # (Manual) (0.0-0.1) K/mm3 Metamyelocytes # K/mm3 Myelocytes # K/mm3 Promyelocytes # K/mm3 Blast Cells # K/mm3 WBC Morphology Hypersegmented Neuts Hyposegmented Neuts Hypogranular Neuts Smudge Cells Toxic Granulation Toxic Vacuolation Dohle Bodies Pelger-Huet Anomaly Juan Carlos Rods Platelet Estimate Clumped Platelets Plt Clumps, EDTA Large Platelets Giant Platelets Platelet Satelliting Plt Morphology Comment RBC Morphology Dimorphic RBCs Polychromasia Hypochromasia Poikilocytosis Anisocytosis Microcytosis Macrocytosis Spherocytes Pappenheimer Bodies Sickle Cells Target Cells Tear Drop Cells Ovalocytes Helmet Cells Constantino-Maiden Bodies Coleman Rings Britt Cells Bite Cells Crenated Cell Elliptocytes Acanthocytes (Spur) Rouleaux Hemoglobin C Crystals Schistocytes Malaria parasites Thong Bodies Hem Pathologist Commnt PT (12.2-14.9) Sec. INR (0.87-1.13) APTT (24.2-36.6) Sec. Thrombin Time (15.1-19.6) Sec. VBG pH (7.320-7.420) Carboxyhemoglobin Sodium (137-145) mmol/L Potassium (3.6-5.0) mmol/L Chloride (98-107) mmol/L Carbon Dioxide (22-30) mmol/L Anion Gap mmol/L BUN (7-17) mg/dL Creatinine (0.7-1.2) mg/dL Estimated GFR ml/min BUN/Creatinine Ratio % Glucose (65-100) mg/dL Lactic Acid (0.7-2.0) mmol/L Calcium (8.4-10.2) mg/dL Magnesium (1.7-2.3) mg/dL Total Bilirubin (0.1-1.2) mg/dL AST (5-40) units/L ALT (7-56) units/L Alkaline Phosphatase (35-129) units/L Total Creatine Kinase (30-135) units/L CK-MB (CK-2) (0.0-4.0) ng/mL CK-MB (CK-2) Rel Index (0-4) Troponin T (0.00-0.029) ng/mL Total Protein (6.3-8.2) g/dL Albumin (3.9-5) g/dL Albumin/Globulin Ratio % Urine Color (Yellow) Urine Turbidity (Clear) Urine pH (5.0-7.0) Ur Specific [place] (1.003-1.030) Urine Protein (Negative) mg/dL Urine Glucose (UA) (Negative) mg/dL Urine Ketones (Negative) mg/dL Urine Blood (Negative) Urine Nitrite (Negative) Urine Bilirubin (Negative) Urine Urobilinogen (<2.0) mg/dL Ur Leukocyte Esterase (Negative) Urine WBC (Auto) (0.0-6.0) /HPF Urine RBC (Auto) (0.0-6.0) /HPF U Epithel Cells (Auto) (0-13.0) /HPF Urine Mucus /HPF Salicylates < 0.3 L (2.8-20.0) mg/dL Urine Opiates Screen Urine Methadone Screen Acetaminophen < 5.0 L (10.0-30.0) ug/mL Ur Barbiturates Screen Ur Phencyclidine Scrn Ur Amphetamines Screen U Benzodiazepines Scrn Urine Cocaine Screen U Marijuana (THC) Screen Drugs of Abuse Note Plasma/Serum Alcohol 0.24 H (0-0.07) % 03/11/19 03/11/19 03/11/19 Range/Units 15:26 15:26 17:12 WBC (4.5-11.0) K/mm3 RBC (3.65-5.03) M/mm3 Hgb (10.1-14.3) gm/dl Hct (30.3-42.9) % MCV (79-97) fl MCH (28-32) pg MCHC (30-34) % RDW (13.2-15.2) % Plt Count (140-440) K/mm3 Lymph % (Auto) Add Manual Diff Total Counted Seg Neutrophils % Seg Neuts % (Manual) (40.0-70.0) % Band Neutrophils % % Lymphocytes % (Manual) (13.4-35.0) % Reactive Lymphs % (Man) % Monocytes % (Manual) (0.0-7.3) % Eosinophils % (Manual) (0.0-4.3) % Basophils % (Manual) (0.0-1.8) % Metamyelocytes % % Myelocytes % % Promyelocytes % % Blast Cells % % Nucleated RBC % Seg Neutrophils # Man (1.8-7.7) K/mm3 Band Neutrophils # K/mm3 Lymphocytes # (Manual) (1.2-5.4) K/mm3 Abs React Lymphs (Man) K/mm3 Monocytes # (Manual) (0.0-0.8) K/mm3 Eosinophils # (Manual) (0.0-0.4) K/mm3 Basophils # (Manual) (0.0-0.1) K/mm3 Metamyelocytes # K/mm3 Myelocytes # K/mm3 Promyelocytes # K/mm3 Blast Cells # K/mm3 WBC Morphology Hypersegmented Neuts Hyposegmented Neuts Hypogranular Neuts Smudge Cells Toxic Granulation Toxic Vacuolation Dohle Bodies Pelger-Huet Anomaly Juan Carlos Rods Platelet Estimate Clumped Platelets Plt Clumps, EDTA Large Platelets Giant Platelets Platelet Satelliting Plt Morphology Comment RBC Morphology Dimorphic RBCs Polychromasia Hypochromasia Poikilocytosis Anisocytosis Microcytosis Macrocytosis Spherocytes Pappenheimer Bodies Sickle Cells Target Cells Tear Drop Cells Ovalocytes Helmet Cells Constantino-Maiden Bodies Coleman Rings Britt Cells Bite Cells Crenated Cell Elliptocytes Acanthocytes (Spur) Rouleaux Hemoglobin C Crystals Schistocytes Malaria parasites Thong Bodies Hem Pathologist Commnt PT (12.2-14.9) Sec. INR (0.87-1.13) APTT (24.2-36.6) Sec. Thrombin Time (15.1-19.6) Sec. VBG pH 7.413 (7.320-7.420) Carboxyhemoglobin 5.2 Sodium (137-145) mmol/L Potassium (3.6-5.0) mmol/L Chloride (98-107) mmol/L Carbon Dioxide (22-30) mmol/L Anion Gap mmol/L BUN (7-17) mg/dL Creatinine (0.7-1.2) mg/dL Estimated GFR ml/min BUN/Creatinine Ratio % Glucose (65-100) mg/dL Lactic Acid 2.10 H* (0.7-2.0) mmol/L Calcium (8.4-10.2) mg/dL Magnesium (1.7-2.3) mg/dL Total Bilirubin (0.1-1.2) mg/dL AST (5-40) units/L ALT (7-56) units/L Alkaline Phosphatase (35-129) units/L Total Creatine Kinase (30-135) units/L CK-MB (CK-2) (0.0-4.0) ng/mL CK-MB (CK-2) Rel Index (0-4) Troponin T (0.00-0.029) ng/mL Total Protein (6.3-8.2) g/dL Albumin (3.9-5) g/dL Albumin/Globulin Ratio % Urine Color (Yellow) Urine Turbidity (Clear) Urine pH (5.0-7.0) Ur Specific [place] (1.003-1.030) Urine Protein (Negative) mg/dL Urine Glucose (UA) (Negative) mg/dL Urine Ketones (Negative) mg/dL Urine Blood (Negative) Urine Nitrite (Negative) Urine Bilirubin (Negative) Urine Urobilinogen (<2.0) mg/dL Ur Leukocyte Esterase (Negative) Urine WBC (Auto) (0.0-6.0) /HPF Urine RBC (Auto) (0.0-6.0) /HPF U Epithel Cells (Auto) (0-13.0) /HPF Urine Mucus /HPF Salicylates (2.8-20.0) mg/dL Urine Opiates Screen Urine Methadone Screen Acetaminophen (10.0-30.0) ug/mL Ur Barbiturates Screen Ur Phencyclidine Scrn Ur Amphetamines Screen U Benzodiazepines Scrn Urine Cocaine Screen U Marijuana (THC) Screen Drugs of Abuse Note Plasma/Serum Alcohol (0-0.07) % 03/11/19 03/11/19 03/11/19 Range/Units 19:33 Unknown Unknown WBC (4.5-11.0) K/mm3 RBC (3.65-5.03) M/mm3 Hgb (10.1-14.3) gm/dl Hct (30.3-42.9) % MCV (79-97) fl MCH (28-32) pg MCHC (30-34) % RDW (13.2-15.2) % Plt Count (140-440) K/mm3 Lymph % (Auto) Add Manual Diff Total Counted Seg Neutrophils % Seg Neuts % (Manual) (40.0-70.0) % Band Neutrophils % % Lymphocytes % (Manual) (13.4-35.0) % Reactive Lymphs % (Man) % Monocytes % (Manual) (0.0-7.3) % Eosinophils % (Manual) (0.0-4.3) % Basophils % (Manual) (0.0-1.8) % Metamyelocytes % % Myelocytes % % Promyelocytes % % Blast Cells % % Nucleated RBC % Seg Neutrophils # Man (1.8-7.7) K/mm3 Band Neutrophils # K/mm3 Lymphocytes # (Manual) (1.2-5.4) K/mm3 Abs React Lymphs (Man) K/mm3 Monocytes # (Manual) (0.0-0.8) K/mm3 Eosinophils # (Manual) (0.0-0.4) K/mm3 Basophils # (Manual) (0.0-0.1) K/mm3 Metamyelocytes # K/mm3 Myelocytes # K/mm3 Promyelocytes # K/mm3 Blast Cells # K/mm3 WBC Morphology Hypersegmented Neuts Hyposegmented Neuts Hypogranular Neuts Smudge Cells Toxic Granulation Toxic Vacuolation Dohle Bodies Pelger-Huet Anomaly Juan Carlos Rods Platelet Estimate Clumped Platelets Plt Clumps, EDTA Large Platelets Giant Platelets Platelet Satelliting Plt Morphology Comment RBC Morphology Dimorphic RBCs Polychromasia Hypochromasia Poikilocytosis Anisocytosis Microcytosis Macrocytosis Spherocytes Pappenheimer Bodies Sickle Cells Target Cells Tear Drop Cells Ovalocytes Helmet Cells Constantino-Maiden Bodies Coleman Rings Britt Cells Bite Cells Crenated Cell Elliptocytes Acanthocytes (Spur) Rouleaux Hemoglobin C Crystals Schistocytes Malaria parasites Tohng Bodies Hem Pathologist Commnt PT (12.2-14.9) Sec. INR (0.87-1.13) APTT (24.2-36.6) Sec. Thrombin Time (15.1-19.6) Sec. VBG pH (7.320-7.420) Carboxyhemoglobin Sodium (137-145) mmol/L Potassium (3.6-5.0) mmol/L Chloride (98-107) mmol/L Carbon Dioxide (22-30) mmol/L Anion Gap mmol/L BUN (7-17) mg/dL Creatinine (0.7-1.2) mg/dL Estimated GFR ml/min BUN/Creatinine Ratio % Glucose (65-100) mg/dL Lactic Acid 2.00 (0.7-2.0) mmol/L Calcium (8.4-10.2) mg/dL Magnesium (1.7-2.3) mg/dL Total Bilirubin (0.1-1.2) mg/dL AST (5-40) units/L ALT (7-56) units/L Alkaline Phosphatase (35-129) units/L Total Creatine Kinase (30-135) units/L CK-MB (CK-2) (0.0-4.0) ng/mL CK-MB (CK-2) Rel Index (0-4) Troponin T (0.00-0.029) ng/mL Total Protein (6.3-8.2) g/dL Albumin (3.9-5) g/dL Albumin/Globulin Ratio % Urine Color Straw (Yellow) Urine Turbidity Clear (Clear) Urine pH 7.0 (5.0-7.0) Ur Specific [place] 1.009 (1.003-1.030) Urine Protein <15 mg/dl (Negative) mg/dL Urine Glucose (UA) Neg (Negative) mg/dL Urine Ketones Neg (Negative) mg/dL Urine Blood Neg (Negative) Urine Nitrite Neg (Negative) Urine Bilirubin Neg (Negative) Urine Urobilinogen < 2.0 (<2.0) mg/dL Ur Leukocyte Esterase Neg (Negative) Urine WBC (Auto) < 1.0 (0.0-6.0) /HPF Urine RBC (Auto) < 1.0 (0.0-6.0) /HPF U Epithel Cells (Auto) 1.0 (0-13.0) /HPF Urine Mucus Few /HPF Salicylates (2.8-20.0) mg/dL Urine Opiates Screen Presumptive negative Urine Methadone Screen Presumptive negative Acetaminophen (10.0-30.0) ug/mL Ur Barbiturates Screen Presumptive negative Ur Phencyclidine Scrn Presumptive negative Ur Amphetamines Screen Presumptive negative U Benzodiazepines Scrn Presumptive positive Urine Cocaine Screen Presumptive negative U Marijuana (THC) Screen Presumptive negative Drugs of Abuse Note Disclamer Plasma/Serum Alcohol (0-0.07) %
--- NOTE | 2019-03-12 12:01 | Event Note ---
Date: 03/11/19 58 YO Female with ETOH dependence who is currently intoxicated at time of exam. Pt seen and evaluated in ED. Pt family at bedside. Pt care plan discussed with son via Skype. Pt son reports that patient "does this all the time. Pt found to have no neurologic deficit, and no clinical evidence of CVA. Pt care plan discussed with family members at bedside. Pt medically optimized and discharged home. Pt to F/u pcp 3-5 days for f/u care and age appropriate screening tests, and attend AA meeting at discharge. PT family acknowledge understanding and agreement with discharge plan. - General Limitations:none General appearance: alert, lethargic - Head Head exam: Present: atraumatic, normocephalic - Eye Eye exam: Present: normal appearance, PERRL, EOMI, - ENT ENT exam: Present: normal exam, normal orophraynx, mucous membranes moist, normal external ear exam - Neck Neck exam: Present: normal inspection, full ROM. Absent: tenderness, meningismus - Respiratory Respiratory exam: Present: normal lung sounds bilaterally. Absent: respiratory distress - Cardiovascular Cardiovascular Exam: Present: regular rate, normal rhythm, normal heart sounds. Absent: bradycardia, tachycardia, irregular rhythm, systolic murmur, diastolic murmur, rubs, gallop - GI/Abdominal GI/Abdominal exam: Present: soft. Absent: distended, tenderness, guarding, rebound, rigid, pulsatile mass - Extremities Exam Extremities exam: Present: normal inspection, full ROM, other (2+ pulses noted in the bilateral upper, lower extremities. Compartments soft. No long bony tenderness. The pelvis is stable.). Absent: tenderness, joint swelling, calf tenderness - Back Exam Back exam: Present: normal inspection. Absent: tenderness, CVA tenderness (R), CVA tenderness (L), paraspinal tenderness, vertebral tenderness - Neurological Exam Neurological exam: Present:CN 2-12 Intact, No focal deficit, Pt moving all ex tremities. Strength 4/5 BUE/BLE. Patient sleeping but arousable with verbal stimuli.. There is no obvious facial droop. - Skin Skin exam: Present: warm, dry, intact, normal color. Absent: rash
[2019-03-12 12:53] VITALS: BP 134/92
== END 2019-03-12 12:53 | disposition home or self-care (01) ==
LOC: ED 14:39
DX: G93.41 Metabolic encephalopathy (principal); I11.0 Hypertensive heart disease with heart failure; I50.9 Heart failure, unspecified; F41.9 Anxiety disorder, unspecified; F17.200 Nicotine dependence, unspecified, uncomplicated; Z98.51 Tubal ligation status; Z90.710 Acquired absence of both cervix and uterus
CPT/HCPCS: 36415; 70450; 71045; 72125; 80053; 80307; 81001; 82140; 82375; 82550; 82553; 82805; 83735; 84484; 85007; 85025; 85610; 85670; 85730; 87040; 93005; 93010; 96365; 96366; 96368; 99285; G0480; J1956; J3411; J3480; J7030; J7040; 80320